=== PATIENT | male | born 1970 | race Caucasian/White ===

== ENCOUNTER 2022-02-11 10:19 | Inpatient (IN) | payer MEDICAID ==
[~2022-02-11] VITALS: Ht 188 cm; Wt 108.0 kg
[~2022-02-11 10:19] MED LIST: ALLO-97 PO; ATOR40TA28 PO; CHOL500013 PO; DIVA-80 PO; DOXY-354 PO; INSLAN SQ; INSU100V SQ; LACT1CAP70 PO; LOSA-381 PO; MULT-1119 PO; NEOM7.5C2 TP; PANT-31 PO; PRED-554 PO; SERT-162 PO; SODI5POW3 PO; SODI650T33 PO
[2022-02-11 16:24] VITALS: BP 144/75
[2022-02-11] MEDS ORDERED: DOCUSATE SODIUM 100 MG CAPSULE PO PRN (20:30)
[2022-02-11] MEDS ORDERED: CloNIDine HCL 0.1 MG TABLET PO PRN (20:30)
[2022-02-11] MEDS ORDERED: PETROLATUM,WHITE 28 GM JELLY TP PRN (20:30)
[2022-02-11] MEDS ORDERED: DEXTROSE 50%-WATER 25 GM/50 ML SYRINGE IVP PRN (20:30)
[2022-02-11] MEDS ORDERED: INSULIN LISPRO 100 UNITS/ML SQ PRN (20:30)
[2022-02-11] MEDS ORDERED: BACITRACIN 28 GM OINTMENT TP PRN (20:30)
[2022-02-11] MEDS ORDERED: ONDANSETRON HCL 4 MG TABLET PO PRN (20:30)
[2022-02-11] MEDS ORDERED: LOPERAMIDE HCL 2 MG CAPSULE PO PRN (20:30)
[2022-02-11] MEDS ORDERED: BENZOCAINE/MENTHOL LOZENGE PO PRN (20:30)
[2022-02-11] MEDS ORDERED: MAGNESIUM HYDROXIDE SUSPENSION 30 ML UDCUP PO PRN (20:30)
[2022-02-11] MEDS ORDERED: OMEPRAZOLE 20 MG CAPSULE PO PRN (20:30)
[2022-02-11] MEDS ORDERED: ALBUTEROL SULFATE HFA 90 MCG/PUFF 8 GM INHALER IH PRN (20:30)
[2022-02-11] MEDS ORDERED: MAG HYDROX/AL HYDROX/SIMETH ES 30 ML SUSPENSION UDCUP PO PRN (20:30)
[2022-02-11 21:41] LABS: GLUCOMETER DEV NAME(LOC) BV3N.; GLUCOSE,POINT OF CARE 105 MG/DL (70-110)
[2022-02-12] MEDS ORDERED: GLUCAGON,HUMAN RECOMBINANT 1 MG VIAL IM PRN (01:30)
[2022-02-12] MEDS ORDERED: INSULIN LISPRO 100 UNITS/ML SQ PRN (01:30)
[2022-02-12] MEDS: HALOPERIDOL 5 MG TABLET PO PRN (03:54)
[2022-02-12] MEDS: LORazepam 2 MG TABLET PO PRN ×2 (03:54→08:37)
[2022-02-12 03:55] VITALS: BP 144/78
[2022-02-12 06:07] LABS: GLUCOMETER DEV NAME(LOC) BV3N.; GLUCOSE,POINT OF CARE 115 MG/DL (70-110)
[2022-02-12] MEDS ORDERED: INSULIN LISPRO 100 UNITS/ML SQ SCH (06:30)
[2022-02-12 07:24] LABS: BASOPHILS % (AUTO) 0.4 % (0.0-2.0); EOSINOPHILS % (AUTO) 4.3 % (1.0-6.0); HEMATOCRIT 37.3 % (41-53); HEMOGLOBIN 12.5 g/dL (13.5-17.5); LYMPHOCYTES # (AUTO) 1.5 K/uL (1.0-4.8); LYMPHOCYTES % (AUTO) 23.3 % (22.0-44.0); MEAN CORPUSCULAR HEMOGLOBIN 28.1 pg (26.0-34.0); MEAN CORPUSCULAR HGB CONC 33.6 G/dL (31.0-37.0); MEAN CORPUSCULAR VOLUME 84 fL (80-100); MONOCYTES # (AUTO) 0.8 K/uL (0.1-1.0); MONOCYTES % (AUTO) 11.4 % (2.0-9.0); NEUTROPHILS % (AUTO) 60.6 % (40.0-70.0); PLATELET COUNT (AUTO) 100 K/uL (150-450); RED BLOOD CELL COUNT(AUTO) 4.46 MIL/uL (4.50-5.90); RED CELL DISTRIBUTION WIDTH 15.4 % (11.5-14.5)
[2022-02-12 07:38] LABS: HEMOGLOBIN A1C 5.7 % (3.8-5.6)
[2022-02-12 07:57] LABS: ALANINE AMINOTRANSFERASE 22 U/L (12-78); ALBUMIN 3.6 g/dL (3.4-5.0); ALKALINE PHOSPHATASE 93 U/L (46-116); ANION GAP 13 mmol/L (8-16); ASPARTATE AMINOTRANSFERASE 18 U/L (15-37); BILIRUBIN,TOTAL 0.5 mg/dL (0.1-1.0); CALCIUM, TOTAL 8.6 mg/dL (8.8-10.5); CARBON DIOXIDE 21 mmol/L (22-29); CHLORIDE 105 mmol/L (98-107); CHOL/HDL RATIO 5.3 (4.2-7.3); CHOLESTEROL 212 mg/dL (131-200); CREATININE 1.95 mg/dL (0.60-1.30); FREE T4 (FREE THYROXINE) 0.93 ng/dL (0.76-1.46); GLUCOSE,RANDOM 110 mg/dL (70-110); HDL CHOLESTEROL 40 mg/dL (40-60); LDL CHOL (CALC.) 94 mg/dL (0-130); POTASSIUM 3.8 mmol/L (3.5-5.1); SODIUM SERUM 139 mmol/L (136-145); THYROID STIMULATING HORMONE 3.49 uIU/mL (0.36-3.74); TOTAL PROTEIN, SERUM 7.2 g/dL (6.4-8.2); TRIGLYCERIDES 389 mg/dL (15-150); UREA NITROGEN, BLOOD 29 mg/dL (7-18)
[2022-02-12 07:58] LABS: GLOMERULAR FILTR. RATE CALC 36 mL/min (>60)
[2022-02-12 08:21] VITALS: BP 149/98
[2022-02-12] MEDS: LOSARTAN POTASSIUM 25 MG TABLET PO SCH (08:31)
[2022-02-12] MEDS: CHOLECALCIFEROL (VIT D3) 5,000 [125 MCG] UNITS CAPSULE PO SCH (08:31)
[2022-02-12] MEDS: ALLOPURINOL 100 MG TABLET PO SCH (08:31)
[2022-02-12] MEDS: ATORVASTATIN CALCIUM 40 MG TABLET PO SCH (08:31)
[2022-02-12] MEDS ORDERED: SERTRALINE HCL 100 MG TABLET PO SCH (09:00)
[2022-02-12] MEDS ORDERED: INSULIN GLARGINE,HUM.REC.ANLOG 100 UNITS/ML SQ SCH (09:00)
[2022-02-12] MEDS: MULTIVITAMINS WITH MINERALS, THERAPEUTIC TABLET PO SCH (09:06)
[2022-02-12 09:20] LABS: GLUCOMETER DEV NAME(LOC) BV3N.; GLUCOSE,POINT OF CARE 116 MG/DL (70-110)
[2022-02-12 11:56] LABS: GLUCOMETER DEV NAME(LOC) BV3N.; GLUCOSE,POINT OF CARE 105 MG/DL (70-110)
[2022-02-12 16:12] VITALS: BP 131/74
[2022-02-12 16:36] LABS: GLUCOMETER DEV NAME(LOC) BV3N.; GLUCOSE,POINT OF CARE 109 MG/DL (70-110)
[2022-02-12 20:36] LABS: GLUCOMETER DEV NAME(LOC) BV3N.; GLUCOSE,POINT OF CARE 98 MG/DL (70-110)
[2022-02-12] MEDS: DIVALPROEX SODIUM 500 MG DR TABLET PO SCH (20:45)
[2022-02-12] MEDS: LURASIDONE HCL 60 MG TABLET PO SCH (20:45)
[2022-02-13 00:24] VITALS: BP 133/70
[2022-02-13 06:31] LABS: GLUCOMETER DEV NAME(LOC) BV3N.; GLUCOSE,POINT OF CARE 93 MG/DL (70-110)
[2022-02-13 08:21] VITALS: BP 126/72
[2022-02-13] MEDS: ALLOPURINOL 100 MG TABLET PO SCH (08:43)
[2022-02-13] MEDS: ATORVASTATIN CALCIUM 40 MG TABLET PO SCH (08:43)
[2022-02-13] MEDS: LOSARTAN POTASSIUM 25 MG TABLET PO SCH (08:43)
[2022-02-13] MEDS: MULTIVITAMINS WITH MINERALS, THERAPEUTIC TABLET PO SCH (08:43)
[2022-02-13] MEDS: CHOLECALCIFEROL (VIT D3) 5,000 [125 MCG] UNITS CAPSULE PO SCH (08:43)
[2022-02-13] MEDS: LORazepam 2 MG TABLET PO PRN ×2 (08:44→16:59)
[2022-02-13 11:56] LABS: GLUCOMETER DEV NAME(LOC) BV3N.; GLUCOSE,POINT OF CARE 95 MG/DL (70-110)
[2022-02-13 16:18] VITALS: BP 134/90
[2022-02-13 17:11] LABS: GLUCOMETER DEV NAME(LOC) BV3N.; GLUCOSE,POINT OF CARE 115 MG/DL (70-110)
[2022-02-13] MEDS: DIVALPROEX SODIUM 500 MG DR TABLET PO SCH (20:34)
[2022-02-13] MEDS: LURASIDONE HCL 60 MG TABLET PO SCH (20:34)
[2022-02-13 21:21] LABS: GLUCOMETER DEV NAME(LOC) BV3N.; GLUCOSE,POINT OF CARE 140 MG/DL (70-110)
[2022-02-14 00:51] VITALS: BP 122/57
[2022-02-14 06:17] LABS: GLUCOMETER DEV NAME(LOC) BV3N.; GLUCOSE,POINT OF CARE 107 MG/DL (70-110)
[2022-02-14] MEDS: LOSARTAN POTASSIUM 25 MG TABLET PO SCH (08:20)
[2022-02-14] MEDS: LORazepam 2 MG TABLET PO PRN ×2 (08:21→20:25)
[2022-02-14] MEDS: ALLOPURINOL 100 MG TABLET PO SCH (08:21)
[2022-02-14] MEDS: MULTIVITAMINS WITH MINERALS, THERAPEUTIC TABLET PO SCH (08:21)
[2022-02-14] MEDS: CHOLECALCIFEROL (VIT D3) 5,000 [125 MCG] UNITS CAPSULE PO SCH (08:21)
[2022-02-14] MEDS: ATORVASTATIN CALCIUM 40 MG TABLET PO SCH (08:21)
[2022-02-14 12:01] LABS: GLUCOMETER DEV NAME(LOC) BV3N.; GLUCOSE,POINT OF CARE 107 MG/DL (70-110)
[2022-02-14 12:54] VITALS: BP 147/74
[2022-02-14 16:22] VITALS: BP 108/62
[2022-02-14 17:18] LABS: GLUCOMETER DEV NAME(LOC) BV3N.; GLUCOSE,POINT OF CARE 110 MG/DL (70-110)
[2022-02-14] MEDS: DIVALPROEX SODIUM 500 MG DR TABLET PO SCH (20:25)
[2022-02-14] MEDS: LURASIDONE HCL 60 MG TABLET PO SCH (20:25)
[2022-02-15] MEDS: MetFORMIN HCL 500 MG TABLET PO SCH ×2 (06:19→17:04)
[2022-02-15 06:32] VITALS: BP 136/84
[2022-02-15] MEDS: LORazepam 2 MG TABLET PO PRN ×2 (08:33→17:05)
[2022-02-15] MEDS: CHOLECALCIFEROL (VIT D3) 5,000 [125 MCG] UNITS CAPSULE PO SCH (08:33)
[2022-02-15] MEDS: MULTIVITAMINS WITH MINERALS, THERAPEUTIC TABLET PO SCH (08:33)
[2022-02-15] MEDS: ALLOPURINOL 100 MG TABLET PO SCH (08:33)
[2022-02-15] MEDS: LOSARTAN POTASSIUM 25 MG TABLET PO SCH (08:33)
[2022-02-15] MEDS: ATORVASTATIN CALCIUM 40 MG TABLET PO SCH (08:33)
[2022-02-15 16:21] VITALS: BP 125/69
[2022-02-15] MEDS: HALOPERIDOL 5 MG TABLET PO PRN (17:05)
[2022-02-15] MEDS: ZOLPIDEM TARTRATE 10 MG TABLET PO PRN (20:38)
[2022-02-15] MEDS: LURASIDONE HCL 60 MG TABLET PO SCH (20:38)
[2022-02-15] MEDS: DIVALPROEX SODIUM 500 MG DR TABLET PO SCH (20:38)
[2022-02-16 05:35] VITALS: BP 120/71
[2022-02-16] MEDS: MetFORMIN HCL 500 MG TABLET PO SCH ×2 (06:29→16:39)
[2022-02-16 08:16] VITALS: BP 103/63
[2022-02-16] MEDS: LOSARTAN POTASSIUM 25 MG TABLET PO SCH (08:41)
[2022-02-16] MEDS: LORazepam 2 MG TABLET PO PRN ×2 (08:41→16:39)
[2022-02-16] MEDS: ALLOPURINOL 100 MG TABLET PO SCH (08:41)
[2022-02-16] MEDS: CHOLECALCIFEROL (VIT D3) 5,000 [125 MCG] UNITS CAPSULE PO SCH (08:41)
[2022-02-16] MEDS: MULTIVITAMINS WITH MINERALS, THERAPEUTIC TABLET PO SCH (08:41)
[2022-02-16] MEDS: ATORVASTATIN CALCIUM 40 MG TABLET PO SCH (08:41)
[2022-02-16 16:12] VITALS: BP 115/73
[2022-02-16] MEDS: HALOPERIDOL 5 MG TABLET PO PRN (16:39)
[2022-02-16] MEDS: LURASIDONE HCL 60 MG TABLET PO SCH (20:36)
[2022-02-16] MEDS: ZOLPIDEM TARTRATE 10 MG TABLET PO PRN (20:36)
[2022-02-16] MEDS: DIVALPROEX SODIUM 500 MG DR TABLET PO SCH (20:36)
[2022-02-17 00:49] VITALS: BP 119/72
[2022-02-17] MEDS: HALOPERIDOL 5 MG TABLET PO PRN ×2 (00:51→17:13)
[2022-02-17] MEDS: LORazepam 2 MG TABLET PO PRN ×2 (00:51→17:13)
[2022-02-17] MEDS: MetFORMIN HCL 500 MG TABLET PO SCH ×2 (06:49→16:19)
[2022-02-17] MEDS: LOSARTAN POTASSIUM 25 MG TABLET PO SCH (08:33)
[2022-02-17] MEDS: MULTIVITAMINS WITH MINERALS, THERAPEUTIC TABLET PO SCH (08:33)
[2022-02-17] MEDS: ATORVASTATIN CALCIUM 40 MG TABLET PO SCH (08:33)
[2022-02-17] MEDS: ALLOPURINOL 100 MG TABLET PO SCH (08:33)
[2022-02-17] MEDS: CHOLECALCIFEROL (VIT D3) 5,000 [125 MCG] UNITS CAPSULE PO SCH (08:33)
[2022-02-17 09:43] VITALS: BP 118/71
[2022-02-17 17:15] VITALS: BP 112/76
[2022-02-17 19:50] VITALS: BP 116/75
[2022-02-17] MEDS: ACETAMINOPHEN 325 MG TABLET PO PRN (19:56)
[2022-02-17] MEDS: LURASIDONE HCL 60 MG TABLET PO SCH (20:00)
[2022-02-17] MEDS: DIVALPROEX SODIUM 500 MG DR TABLET PO SCH (20:00)
[2022-02-18 04:31] VITALS: BP 126/88
[2022-02-18] MEDS: MetFORMIN HCL 500 MG TABLET PO SCH ×2 (06:20→16:27)
[2022-02-18] MEDS: LOSARTAN POTASSIUM 25 MG TABLET PO SCH (08:19)
[2022-02-18] MEDS: ALLOPURINOL 100 MG TABLET PO SCH (08:19)
[2022-02-18] MEDS: ATORVASTATIN CALCIUM 40 MG TABLET PO SCH (08:20)
[2022-02-18] MEDS: HALOPERIDOL 5 MG TABLET PO PRN ×2 (08:20→16:28)
[2022-02-18] MEDS: LORazepam 2 MG TABLET PO PRN ×2 (08:20→16:28)
[2022-02-18] MEDS: CHOLECALCIFEROL (VIT D3) 5,000 [125 MCG] UNITS CAPSULE PO SCH (08:20)
[2022-02-18] MEDS: MULTIVITAMINS WITH MINERALS, THERAPEUTIC TABLET PO SCH (08:20)
[2022-02-18 08:27] VITALS: BP 113/51
[2022-02-18 16:14] VITALS: BP 122/75
[2022-02-18] MEDS: LURASIDONE HCL 60 MG TABLET PO SCH (20:22)
[2022-02-18] MEDS: DIVALPROEX SODIUM 500 MG DR TABLET PO SCH (20:22)
[2022-02-18] MEDS: ZOLPIDEM TARTRATE 10 MG TABLET PO PRN (20:23)
[2022-02-19] MEDS: HALOPERIDOL 5 MG TABLET PO PRN ×2 (00:12→17:27)
[2022-02-19 00:45] VITALS: BP 135/96
[2022-02-19] MEDS: MetFORMIN HCL 500 MG TABLET PO SCH ×2 (06:10→16:08)
[2022-02-19] MEDS: CHOLECALCIFEROL (VIT D3) 5,000 [125 MCG] UNITS CAPSULE PO SCH (08:24)
[2022-02-19] MEDS: MULTIVITAMINS WITH MINERALS, THERAPEUTIC TABLET PO SCH (08:24)
[2022-02-19] MEDS: ATORVASTATIN CALCIUM 40 MG TABLET PO SCH (08:24)
[2022-02-19] MEDS: ALLOPURINOL 100 MG TABLET PO SCH (08:25)
[2022-02-19] MEDS: LOSARTAN POTASSIUM 25 MG TABLET PO SCH (08:25)
[2022-02-19 08:29] VITALS: BP 109/66
[2022-02-19 16:35] VITALS: BP 119/61
[2022-02-19] MEDS: LORazepam 2 MG TABLET PO PRN (17:27)
[2022-02-19] MEDS: NICOTINE 21 MG/24 HOUR PATCH TD SCH (18:12)
[2022-02-19] MEDS: LURASIDONE HCL 60 MG TABLET PO SCH (21:13)
[2022-02-19] MEDS: DIVALPROEX SODIUM 500 MG DR TABLET PO SCH (21:13)
[2022-02-20] MEDS: LORazepam 2 MG TABLET PO PRN ×2 (00:39→18:56)
[2022-02-20] MEDS: ZOLPIDEM TARTRATE 10 MG TABLET PO PRN ×2 (00:39→21:31)
[2022-02-20 01:30] VITALS: BP 158/97
[2022-02-20] MEDS: MetFORMIN HCL 500 MG TABLET PO SCH ×2 (06:11→16:47)
[2022-02-20] MEDS: CHOLECALCIFEROL (VIT D3) 5,000 [125 MCG] UNITS CAPSULE PO SCH (08:24)
[2022-02-20] MEDS: ALLOPURINOL 100 MG TABLET PO SCH (08:24)
[2022-02-20] MEDS: LOSARTAN POTASSIUM 25 MG TABLET PO SCH (08:24)
[2022-02-20] MEDS: ATORVASTATIN CALCIUM 40 MG TABLET PO SCH (08:24)
[2022-02-20] MEDS: MULTIVITAMINS WITH MINERALS, THERAPEUTIC TABLET PO SCH (08:25)
[2022-02-20] MEDS: NICOTINE 21 MG/24 HOUR PATCH TD SCH (08:25)
[2022-02-20 10:37] VITALS: BP 138/75
[2022-02-20 16:19] VITALS: BP 109/65
[2022-02-20] MEDS: DIVALPROEX SODIUM 500 MG DR TABLET PO SCH (20:24)
[2022-02-20] MEDS: LURASIDONE HCL 60 MG TABLET PO SCH (20:24)
[2022-02-21 01:03] VITALS: BP 142/89
[2022-02-21] MEDS: ACETAMINOPHEN 325 MG TABLET PO PRN (02:06)
[2022-02-21] MEDS: IBUPROFEN 600 MG TABLET PO PRN ×3 (03:39→20:39)
[2022-02-21] MEDS: MetFORMIN HCL 500 MG TABLET PO SCH ×2 (06:23→16:30)
[2022-02-21 08:33] VITALS: BP 104/57
[2022-02-21] MEDS: LOSARTAN POTASSIUM 25 MG TABLET PO SCH (09:00)
[2022-02-21] MEDS: NICOTINE 21 MG/24 HOUR PATCH TD SCH (09:08)
[2022-02-21] MEDS: ALLOPURINOL 100 MG TABLET PO SCH (09:08)
[2022-02-21] MEDS: CHOLECALCIFEROL (VIT D3) 5,000 [125 MCG] UNITS CAPSULE PO SCH (09:08)
[2022-02-21] MEDS: ATORVASTATIN CALCIUM 40 MG TABLET PO SCH (09:09)
[2022-02-21] MEDS: MULTIVITAMINS WITH MINERALS, THERAPEUTIC TABLET PO SCH (09:09)
[2022-02-21 11:57] LABS: GLUCOMETER DEV NAME(LOC) BV3N.; GLUCOSE,POINT OF CARE 102 MG/DL (70-110)
[2022-02-21 16:11] VITALS: BP 110/64
[2022-02-21] MEDS: LORazepam 2 MG TABLET PO PRN (20:49)
[2022-02-21] MEDS: LURASIDONE HCL 60 MG TABLET PO SCH (21:17)
[2022-02-21] MEDS: DIVALPROEX SODIUM 500 MG DR TABLET PO SCH (21:17)
[2022-02-22] MEDS: MetFORMIN HCL 500 MG TABLET PO SCH (07:00)
[2022-02-22] MEDS: NICOTINE 21 MG/24 HOUR PATCH TD SCH (08:33)
[2022-02-22] MEDS: ATORVASTATIN CALCIUM 40 MG TABLET PO SCH (08:33)
[2022-02-22] MEDS: MULTIVITAMINS WITH MINERALS, THERAPEUTIC TABLET PO SCH (08:33)
[2022-02-22] MEDS: LORazepam 2 MG TABLET PO PRN (08:34)
[2022-02-22] MEDS: LOSARTAN POTASSIUM 25 MG TABLET PO SCH (08:34)
[2022-02-22] MEDS: CHOLECALCIFEROL (VIT D3) 5,000 [125 MCG] UNITS CAPSULE PO SCH (08:34)
[2022-02-22] MEDS: ALLOPURINOL 100 MG TABLET PO SCH (08:34)
[2022-02-22] MEDS ORDERED: MULT-1239 PO (17:20)
[2022-02-22] MEDS ORDERED: METF-1211 PO (17:20)
== END 2022-02-22 10:00 | disposition short-term general hospital (02) | DRG 754 ==
LOC: B3A 13:00 → UNDOADMIN 13:30 → B3A 13:30
PROVIDERS: ADMIT Psychiatry & Neurology Psychiatry; ATTEND Psychiatry & Neurology Psychiatry
DX: F32.9 Major depressive disorder, single episode, unspecified (principal); F22 Delusional disorders; E11.9 Type 2 diabetes mellitus without complications; E78.5 Hyperlipidemia, unspecified; F98.4 Stereotyped movement disorders; G40.909 Epilepsy, unspecified, not intractable, without status epilepticus; I10 Essential (primary) hypertension; J44.9 Chronic obstructive pulmonary disease, unspecified; G47.00 Insomnia, unspecified; K59.00 Constipation, unspecified; F41.9 Anxiety disorder, unspecified; Z71.6 Tobacco abuse counseling; Z91.19 Patient's noncompliance with other medical treatment and regimen; Z72.0 Tobacco use
CPT/HCPCS: 80053; 80061; 80164; 82962; 83036; 84436; 84439; 84443; 85025; 86592; G0480; J1815; Q9967

== ENCOUNTER 2022-02-21 23:05 | Emergency (ER) | payer MEDICAID ==
[~2022-02-21] VITALS: Ht 188 cm; Wt 113.0 kg
[2022-02-21 23:36] VITALS: BP 140/80
[2022-02-22] MEDS ORDERED: KETOROLAC TROMETHAMINE 60 MG/2 ML VIAL IM ONE (00:45)
[2022-02-22 00:52] LABS: MEAN CORPUSCULAR HEMOGLOBIN 28.8 pg (26.0-34.0); PLATELET COUNT (AUTO) 103 K/uL (150-450)
[2022-02-22 01:00] LABS: BASOPHILS % (AUTO) 0.5 % (0.0-2.0); CALCIUM, TOTAL 8.7 mg/dL (8.8-10.5); CREATININE 2.62 mg/dL (0.60-1.30); HEMATOCRIT 34.8 % (41-53); HEMOGLOBIN 11.8 g/dL (13.5-17.5); LYMPHOCYTES # (AUTO) 2.4 K/uL (1.0-4.8); LYMPHOCYTES % (AUTO) 31.1 % (22.0-44.0); MEAN CORPUSCULAR HGB CONC 33.8 G/dL (31.0-37.0); MEAN CORPUSCULAR VOLUME 85 fL (80-100); MONOCYTES # (AUTO) 0.7 K/uL (0.1-1.0); MONOCYTES % (AUTO) 9.5 % (2.0-9.0); NEUTROPHILS % (AUTO) 52.9 % (40.0-70.0); POTASSIUM 4.6 mmol/L (3.5-5.1); RED BLOOD CELL COUNT(AUTO) 4.09 MIL/uL (4.50-5.90); RED CELL DISTRIBUTION WIDTH 15.7 % (11.5-14.5)
[2022-02-22 01:04] LABS: ALBUMIN 3.8 g/dL (3.4-5.0); BILIRUBIN,TOTAL 0.1 mg/dL (0.1-1.0); TOTAL PROTEIN, SERUM 7.4 g/dL (6.4-8.2)
[2022-02-22] MEDS ORDERED: LORazepam 2 MG TABLET PO ONE (03:45)
[2022-02-22] MEDS ORDERED: MULT-1239 PO (17:20)
[2022-02-22] MEDS ORDERED: METF-1211 PO (17:20)
== END 2022-02-22 09:43 | disposition home or self-care (01) ==
LOC: EMS 23:05
DX: M54.2 Cervicalgia (principal); N28.9 Disorder of kidney and ureter, unspecified; M19.09 Primary osteoarthritis, other specified site; L73.2 Hidradenitis suppurativa; F31.9 Bipolar disorder, unspecified; J44.9 Chronic obstructive pulmonary disease, unspecified; E11.9 Type 2 diabetes mellitus without complications; Z98.890 Other specified postprocedural states
CPT/HCPCS: 36415; 70450; 70490; 80053; 83605; 85025; 96372; 99284; J1885

== ENCOUNTER 2022-02-22 12:11 | Inpatient (IN) | payer MEDICAID ==
[~2022-02-22] VITALS: Ht 188 cm; Wt 108.5 kg
[2022-02-22 15:23] VITALS: BP 114/70
[2022-02-22] MEDS ORDERED: SODIUM CHLORIDE 0.9% 1,000 ML ONE (15:46)
[2022-02-22] MEDS ORDERED: SODIUM CHLORIDE 0.9% 1,000 ML IV ONE (16:30)
[2022-02-22] MEDS ORDERED: IPRATROPIUM BROMIDE 0.5 MG/2.5 ML NEB SOLUTION NEB PRN (17:15)
[2022-02-22] MEDS ORDERED: MAGNESIUM HYDROXIDE SUSPENSION 30 ML UDCUP PO PRN (17:15)
[2022-02-22] MEDS ORDERED: ONDANSETRON HCL 4 MG/2 ML VIAL IVP PRN (17:15)
[2022-02-22] MEDS ORDERED: ALBUTEROL SULFATE 2.5 MG/0.5 ML NEB SOLUTION NEB PRN (17:15)
[2022-02-22] MEDS ORDERED: METF-1211 PO (17:20)
[2022-02-22] MEDS ORDERED: MULT-1239 PO (17:20)
[2022-02-22 19:26] VITALS: BP 140/83
[2022-02-22] MEDS: DIVALPROEX SODIUM 500 MG ER TABLET PO SCH (19:59)
[2022-02-22] MEDS: ACETAMINOPHEN 325 MG TABLET PO PRN (20:00)
[2022-02-22] MEDS: ZOLPIDEM TARTRATE 5 MG TABLET PO PRN (21:15)
[2022-02-23] MEDS: TraMADol HCL 50 MG TABLET PO PRN ×2 (01:24→09:31)
[2022-02-23 04:15] VITALS: BP 128/71
[2022-02-23 06:32] LABS: GLUCOMETER DEV NAME(LOC) 6N.1; GLUCOSE,POINT OF CARE 108 MG/DL (70-110)
[2022-02-23 07:09] LABS: BASOPHILS % (AUTO) 0.8 % (0.0-2.0); EOSINOPHILS % (AUTO) 6.2 % (1.0-6.0); HEMATOCRIT 35.2 % (41-53); HEMOGLOBIN 11.9 g/dL (13.5-17.5); LYMPHOCYTES # (AUTO) 2.4 K/uL (1.0-4.8); LYMPHOCYTES % (AUTO) 33.5 % (22.0-44.0); MEAN CORPUSCULAR HEMOGLOBIN 28.8 pg (26.0-34.0); MEAN CORPUSCULAR HGB CONC 33.8 G/dL (31.0-37.0); MEAN CORPUSCULAR VOLUME 85 fL (80-100); MONOCYTES # (AUTO) 0.8 K/uL (0.1-1.0); MONOCYTES % (AUTO) 10.9 % (2.0-9.0); NEUTROPHILS # (AUTO) 3.5 K/uL (1.8-7.7); NEUTROPHILS % (AUTO) 48.6 % (40.0-70.0); PLATELET COUNT (AUTO) 105 K/uL (150-450); RED BLOOD CELL COUNT(AUTO) 4.13 MIL/uL (4.50-5.90); RED CELL DISTRIBUTION WIDTH 15.8 % (11.5-14.5)
[2022-02-23 07:17] LABS: HEMOGLOBIN A1C 5.6 % (3.8-5.6)
[2022-02-23 07:29] LABS: ALBUMIN 3.3 g/dL (3.4-5.0); BILIRUBIN,TOTAL 0.2 mg/dL (0.1-1.0); CALCIUM, TOTAL 8.4 mg/dL (8.8-10.5); CREATININE 2.38 mg/dL (0.60-1.30); MAGNESIUM 1.8 mg/dL (1.80-2.40); POTASSIUM 5.7 mmol/L (3.5-5.1); TOTAL PROTEIN, SERUM 6.7 g/dL (6.4-8.2)
[2022-02-23] MEDS: ATORVASTATIN CALCIUM 40 MG TABLET PO SCH ×2 (09:00→09:25)
[2022-02-23] MEDS: ALLOPURINOL 100 MG TABLET PO SCH ×2 (09:00→09:25)
[2022-02-23 09:19] VITALS: BP 127/89
[2022-02-23] MEDS: PANTOPRAZOLE SODIUM 40 MG DR TABLET PO SCH (09:25)
[2022-02-23] MEDS: SERTRALINE HCL 100 MG TABLET PO SCH (09:25)
[2022-02-23] MEDS: CHOLECALCIFEROL (VIT D3) 5,000 [125 MCG] UNITS CAPSULE PO SCH (09:25)
[2022-02-23] MEDS ORDERED: SODIUM POLYSTYRENE SULFONATE 15 GM/60 ML SUSPENSION BOTTLE PO ONE (14:30)
[2022-02-23 16:00] VITALS: BP 119/61
[2022-02-23] MEDS ORDERED: SODIUM ZIRCONIUM CYCLOSILICATE 5 GM POWDER PACKET PO ONE (17:15)
[2022-02-23] MEDS: SODIUM CHLORIDE 0.45% 1,000 ML IV SCH (17:40)
[2022-02-23 20:00] VITALS: BP 106/57
[2022-02-23 20:22] LABS: GLUCOMETER DEV NAME(LOC) 6N.1; GLUCOSE,POINT OF CARE 113 MG/DL (70-110)
[2022-02-23] MEDS: DIVALPROEX SODIUM 500 MG ER TABLET PO SCH (20:36)
[2022-02-23 22:07] LABS: APPEARANCE,URINE CLEAR (CLEAR); BILIRUBIN,URINE NEGATIVE (NEGATIVE); GLUCOSE, URINE (UA) NEGATIVE (NEGATIVE); KETONES,URINE NEGATIVE (NEGATIVE); LEUKOCYTE ESTERASE ,URINE NEGATIVE (NEGATIVE); NITRATE,URINE NEGATIVE (NEGATIVE); OCCULT BLOOD,URINE TRACE (NEGATIVE); PROTEIN,URINE NEGATIVE (NEGATIVE); SPECIFIC GRAVITIY, URINE 1.013 (1.003-1.030); UROBILINOGEN,URINE <=1.0 mg/dL (<=1.0)
[2022-02-23 22:12] LABS: CREATININE,URINE RANDOM 65.4 mg/dL (30.0-125.0); SODIUM,URINE RANDOM 111 mmol/l (20-110); UREA NITROGEN,URINE RANDOM 602 mg/dL (350-1000)
[2022-02-23 22:26] LABS: BACTERIA,URINE None Seen /HPF (None Seen); RBC,URINE None Seen /HPF (0-2); WBC,URINE 0-2 /HPF (0-5)
[2022-02-24 04:00] VITALS: BP 111/76
[2022-02-24] MEDS: SODIUM CHLORIDE 0.45% 1,000 ML IV SCH ×2 (05:25→17:30)
[2022-02-24 05:41] LABS: GLUCOMETER DEV NAME(LOC) 6N.1; GLUCOSE,POINT OF CARE 112 MG/DL (70-110)
[2022-02-24 06:41] LABS: BASOPHILS % (AUTO) 0.6 % (0.0-2.0); EOSINOPHILS % (AUTO) 6.2 % (1.0-6.0); HEMATOCRIT 32.6 % (41-53); HEMOGLOBIN 11.1 g/dL (13.5-17.5); LYMPHOCYTES % (AUTO) 27.7 % (22.0-44.0); MEAN CORPUSCULAR HGB CONC 34.2 G/dL (31.0-37.0); MEAN CORPUSCULAR VOLUME 85 fL (80-100); MONOCYTES # (AUTO) 0.8 K/uL (0.1-1.0); MONOCYTES % (AUTO) 11.5 % (2.0-9.0); NEUTROPHILS # (AUTO) 3.9 K/uL (1.8-7.7); PLATELET COUNT (AUTO) 88 K/uL (150-450); RED BLOOD CELL COUNT(AUTO) 3.84 MIL/uL (4.50-5.90)
[2022-02-24 06:51] LABS: HEMOGLOBIN A1C 5.6 % (3.8-5.6)
[2022-02-24 06:57] LABS: ALBUMIN 3.2 g/dL (3.4-5.0); BILIRUBIN,TOTAL 0.1 mg/dL (0.1-1.0); CALCIUM, TOTAL 8.1 mg/dL (8.8-10.5); CHOL/HDL RATIO 4.7 (4.2-7.3); CREATININE 2.27 mg/dL (0.60-1.30); MAGNESIUM 1.5 mg/dL (1.80-2.40); PHOSPHORUS 4.7 mg/dL (2.5-4.9); POTASSIUM 5.2 mmol/L (3.5-5.1); TOTAL PROTEIN, SERUM 6.6 g/dL (6.4-8.2)
[2022-02-24] MEDS ORDERED: SODIUM ZIRCONIUM CYCLOSILICATE 5 GM POWDER PACKET PO ONE (07:30)
[2022-02-24 07:45] VITALS: BP 114/74
[2022-02-24] MEDS: PANTOPRAZOLE SODIUM 40 MG DR TABLET PO SCH (08:45)
[2022-02-24] MEDS: ATORVASTATIN CALCIUM 40 MG TABLET PO SCH (08:45)
[2022-02-24] MEDS: CHOLECALCIFEROL (VIT D3) 5,000 [125 MCG] UNITS CAPSULE PO SCH (08:46)
[2022-02-24] MEDS: SERTRALINE HCL 100 MG TABLET PO SCH (08:46)
[2022-02-24] MEDS: ALLOPURINOL 100 MG TABLET PO SCH (08:46)
[2022-02-24 11:51] LABS: GLUCOMETER DEV NAME(LOC) 6N.2; GLUCOSE,POINT OF CARE 157 MG/DL (70-110)
[2022-02-24 15:27] VITALS: BP 137/59
[2022-02-24 18:16] LABS: GLUCOMETER DEV NAME(LOC) 6N.1; GLUCOSE,POINT OF CARE 105 MG/DL (70-110)
[2022-02-24 19:59] VITALS: BP 112/58
[2022-02-24] MEDS: ZOLPIDEM TARTRATE 5 MG TABLET PO PRN (20:57)
[2022-02-24] MEDS: DIVALPROEX SODIUM 500 MG ER TABLET PO SCH (20:57)
[2022-02-24] MEDS: ACETAMINOPHEN 325 MG TABLET PO PRN (21:00)
[2022-02-25] MEDS: SODIUM CHLORIDE 0.45% 1,000 ML IV SCH ×2 (03:06→08:58)
[2022-02-25 04:00] VITALS: BP 143/72
[2022-02-25 06:32] LABS: GLUCOMETER DEV NAME(LOC) 6N.2; GLUCOSE,POINT OF CARE 99 MG/DL (70-110)
[2022-02-25 07:38] LABS: CALCIUM, TOTAL 8.2 mg/dL (8.8-10.5); CREATININE 2.25 mg/dL (0.60-1.30); MAGNESIUM 1.4 mg/dL (1.80-2.40); PHOSPHORUS 4.3 mg/dL (2.5-4.9); POTASSIUM 5.1 mmol/L (3.5-5.1)
[2022-02-25 08:01] VITALS: BP 127/80
[2022-02-25] MEDS: PANTOPRAZOLE SODIUM 40 MG DR TABLET PO SCH (08:56)
[2022-02-25] MEDS: ATORVASTATIN CALCIUM 40 MG TABLET PO SCH (08:56)
[2022-02-25] MEDS: SERTRALINE HCL 100 MG TABLET PO SCH (08:56)
[2022-02-25] MEDS: CHOLECALCIFEROL (VIT D3) 5,000 [125 MCG] UNITS CAPSULE PO SCH (08:56)
[2022-02-25 11:10] LABS: HEMATOCRIT 35.1 % (41-53); HEMOGLOBIN 11.8 g/dL (13.5-17.5)
[2022-02-25] MEDS: TraMADol HCL 50 MG TABLET PO PRN ×2 (13:22→20:22)
[2022-02-25 13:56] LABS: GLUCOMETER DEV NAME(LOC) 6N.1; GLUCOSE,POINT OF CARE 124 MG/DL (70-110)
[2022-02-25 16:01] VITALS: BP 130/76
[2022-02-25] MEDS: ACETAMINOPHEN 325 MG TABLET PO PRN ×2 (16:52→21:22)
[2022-02-25 19:31] VITALS: BP 128/76
[2022-02-25 20:11] LABS: GLUCOMETER DEV NAME(LOC) 6N.1; GLUCOSE,POINT OF CARE 100 MG/DL (70-110)
[2022-02-25] MEDS: DIVALPROEX SODIUM 500 MG ER TABLET PO SCH (20:22)
[2022-02-25] MEDS ORDERED: PredniSONE 20 MG TABLET PO ONE (21:45)
[2022-02-25] MEDS ORDERED: IBUPROFEN 400 MG TABLET PO ONE (21:45)
[2022-02-26 03:16] LABS: GLUCOMETER DEV NAME(LOC) 6N.2; GLUCOSE,POINT OF CARE 109 MG/DL (70-110)
[2022-02-26] MEDS: SODIUM CHLORIDE 0.45% 1,000 ML IV SCH (03:59)
[2022-02-26 04:00] VITALS: BP 130/81
[2022-02-26] MEDS: ACETAMINOPHEN 325 MG TABLET PO PRN ×2 (04:01→11:28)
[2022-02-26 04:04] VITALS: BP 132/78
[2022-02-26 06:31] LABS: GLUCOMETER DEV NAME(LOC) 6N.2; GLUCOSE,POINT OF CARE 139 MG/DL (70-110)
[2022-02-26 07:28] VITALS: BP 139/83
[2022-02-26] MEDS: CHOLECALCIFEROL (VIT D3) 5,000 [125 MCG] UNITS CAPSULE PO SCH (07:54)
[2022-02-26] MEDS: SERTRALINE HCL 100 MG TABLET PO SCH (07:54)
[2022-02-26] MEDS: ATORVASTATIN CALCIUM 40 MG TABLET PO SCH (07:54)
[2022-02-26] MEDS: PANTOPRAZOLE SODIUM 40 MG DR TABLET PO SCH (07:54)
[2022-02-26 08:02] LABS: CALCIUM, TOTAL 8.4 mg/dL (8.8-10.5); CREATININE 2.19 mg/dL (0.60-1.30); POTASSIUM 5.3 mmol/L (3.5-5.1)
[2022-02-26 12:26] LABS: GLUCOMETER DEV NAME(LOC) 6N.2; GLUCOSE,POINT OF CARE 177 MG/DL (70-110)
[2022-02-26] MEDS ORDERED: SODIUM ZIRCONIUM CYCLOSILICATE 5 GM POWDER PACKET PO ONE (13:00)
[2022-02-26] MEDS ORDERED: PredniSONE 10 MG TABLET PO ONE (13:00)
[2022-02-26 15:28] VITALS: BP 141/66
[2022-02-26] MEDS ORDERED: DEXTROSE 50%-WATER 25 GM/50 ML SYRINGE IVP PRN (18:15)
[2022-02-26] MEDS: INSULIN LISPRO 100 UNITS/ML SQ PRN ×2 (18:24→20:47)
[2022-02-26 20:02] LABS: GLUCOMETER DEV NAME(LOC) 6N.2; GLUCOSE,POINT OF CARE 212 MG/DL (70-110)
[2022-02-26 20:40] VITALS: BP 127/74
[2022-02-26] MEDS: DIVALPROEX SODIUM 500 MG ER TABLET PO SCH (20:44)
[2022-02-27 03:11] LABS: GLUCOMETER DEV NAME(LOC) 6N.1; GLUCOSE,POINT OF CARE 177 MG/DL (70-110)
[2022-02-27 04:35] VITALS: BP 120/57
[2022-02-27] MEDS: ACETAMINOPHEN 325 MG TABLET PO PRN (04:36)
[2022-02-27] MEDS: INSULIN LISPRO 100 UNITS/ML SQ PRN ×4 (05:35→20:27)
[2022-02-27 06:11] LABS: GLUCOMETER DEV NAME(LOC) 6N.2; GLUCOSE,POINT OF CARE 261 MG/DL (70-110)
[2022-02-27 06:31] LABS: BASOPHILS % (AUTO) 0.1 % (0.0-2.0); EOSINOPHILS % (AUTO) 0.1 % (1.0-6.0); HEMATOCRIT 36.7 % (41-53); HEMOGLOBIN 12.4 g/dL (13.5-17.5); LYMPHOCYTES # (AUTO) 1.2 K/uL (1.0-4.8); MEAN CORPUSCULAR HEMOGLOBIN 28.7 pg (26.0-34.0); MEAN CORPUSCULAR HGB CONC 33.7 G/dL (31.0-37.0); MEAN CORPUSCULAR VOLUME 85 fL (80-100); MONOCYTES # (AUTO) 0.7 K/uL (0.1-1.0); MONOCYTES % (AUTO) 5.7 % (2.0-9.0); NEUTROPHILS # (AUTO) 10.4 K/uL (1.8-7.7); NEUTROPHILS % (AUTO) 84.1 % (40.0-70.0); PLATELET COUNT (AUTO) 117 K/uL (150-450); RED BLOOD CELL COUNT(AUTO) 4.31 MIL/uL (4.50-5.90); RED CELL DISTRIBUTION WIDTH 16.1 % (11.5-14.5)
[2022-02-27 06:50] LABS: CALCIUM, TOTAL 9.1 mg/dL (8.8-10.5); CREATININE 2.22 mg/dL (0.60-1.30); POTASSIUM 5.5 mmol/L (3.5-5.1); URIC ACID 8.8 mg/dL (2.6-7.2)
[2022-02-27] MEDS ORDERED: PredniSONE 20 MG TABLET PO ONE (07:00)
[2022-02-27 08:01] VITALS: BP 133/82
[2022-02-27] MEDS: ATORVASTATIN CALCIUM 40 MG TABLET PO SCH (08:03)
[2022-02-27] MEDS: MetFORMIN HCL 500 MG TABLET PO SCH ×2 (08:03→17:29)
[2022-02-27] MEDS: CHOLECALCIFEROL (VIT D3) 5,000 [125 MCG] UNITS CAPSULE PO SCH (08:04)
[2022-02-27] MEDS: PANTOPRAZOLE SODIUM 40 MG DR TABLET PO SCH (08:04)
[2022-02-27] MEDS: SERTRALINE HCL 100 MG TABLET PO SCH (08:04)
[2022-02-27 08:25] LABS: ERYTHROCYTE SEDIMENTATION RATE 26 MM/HR (0-15)
[2022-02-27] MEDS ORDERED: SODIUM ZIRCONIUM CYCLOSILICATE 5 GM POWDER PACKET PO ONE (12:00)
[2022-02-27 13:06] LABS: GLUCOMETER DEV NAME(LOC) 6N.2; GLUCOSE,POINT OF CARE 218 MG/DL (70-110)
[2022-02-27 16:07] VITALS: BP 146/87
[2022-02-27 18:51] LABS: GLUCOMETER DEV NAME(LOC) 6N.2; GLUCOSE,POINT OF CARE 246 MG/DL (70-110)
[2022-02-27] MEDS: DIVALPROEX SODIUM 500 MG ER TABLET PO SCH (20:23)
[2022-02-27 20:40] VITALS: BP 134/80
[2022-02-27 23:21] LABS: GLUCOMETER DEV NAME(LOC) 6N.2; GLUCOSE,POINT OF CARE 173 MG/DL (70-110)
[2022-02-28 05:40] VITALS: BP 137/90
[2022-02-28 05:49] LABS: BASOPHILS % (AUTO) 1.2 % (0.0-2.0); EOSINOPHILS % (AUTO) 1.3 % (1.0-6.0); HEMATOCRIT 36.3 % (41-53); HEMOGLOBIN 12.4 g/dL (13.5-17.5); LYMPHOCYTES # (AUTO) 2.4 K/uL (1.0-4.8); LYMPHOCYTES % (AUTO) 22.8 % (22.0-44.0); MEAN CORPUSCULAR HEMOGLOBIN 29.3 pg (26.0-34.0); MEAN CORPUSCULAR HGB CONC 34.1 G/dL (31.0-37.0); MEAN CORPUSCULAR VOLUME 86 fL (80-100); MONOCYTES # (AUTO) 0.7 K/uL (0.1-1.0); MONOCYTES % (AUTO) 6.2 % (2.0-9.0); NEUTROPHILS # (AUTO) 7.2 K/uL (1.8-7.7); NEUTROPHILS % (AUTO) 68.5 % (40.0-70.0); PLATELET COUNT (AUTO) 108 K/uL (150-450); RED BLOOD CELL COUNT(AUTO) 4.23 MIL/uL (4.50-5.90); RED CELL DISTRIBUTION WIDTH 16.3 % (11.5-14.5)
[2022-02-28 05:58] LABS: CALCIUM, TOTAL 8.5 mg/dL (8.8-10.5); CREATININE 2.3 mg/dL (0.60-1.30); URIC ACID 8.8 mg/dL (2.6-7.2)
[2022-02-28 06:21] LABS: GLUCOMETER DEV NAME(LOC) 6N.2; GLUCOSE,POINT OF CARE 164 MG/DL (70-110)
[2022-02-28] MEDS: PredniSONE 10 MG TABLET PO SCH (06:36)
[2022-02-28] MEDS: INSULIN LISPRO 100 UNITS/ML SQ PRN ×3 (06:37→17:26)
[2022-02-28] MEDS: SERTRALINE HCL 100 MG TABLET PO SCH (07:59)
[2022-02-28] MEDS: ATORVASTATIN CALCIUM 40 MG TABLET PO SCH (07:59)
[2022-02-28] MEDS: CHOLECALCIFEROL (VIT D3) 5,000 [125 MCG] UNITS CAPSULE PO SCH (07:59)
[2022-02-28] MEDS: PANTOPRAZOLE SODIUM 40 MG DR TABLET PO SCH (07:59)
[2022-02-28] MEDS: MetFORMIN HCL 500 MG TABLET PO SCH ×2 (07:59→17:20)
[2022-02-28] MEDS: ALLOPURINOL 100 MG TABLET PO SCH ×2 (08:01→12:16)
[2022-02-28 08:15] VITALS: BP 132/84
[2022-02-28 14:37] LABS: GLUCOMETER DEV NAME(LOC) 6N.1; GLUCOSE,POINT OF CARE 154 MG/DL (70-110)
[2022-02-28 20:00] VITALS: BP 135/70
[2022-02-28] MEDS: DIVALPROEX SODIUM 500 MG ER TABLET PO SCH (21:02)
[2022-02-28 22:16] LABS: GLUCOMETER DEV NAME(LOC) 6N.2; GLUCOSE,POINT OF CARE 128 MG/DL (70-110)
[2022-03-01] MEDS: ACETAMINOPHEN 325 MG TABLET PO PRN ×3 (03:41→20:10)
[2022-03-01 04:00] VITALS: BP 128/77
[2022-03-01 04:16] LABS: GLUCOMETER DEV NAME(LOC) 6N.1; GLUCOSE,POINT OF CARE 158 MG/DL (70-110)
[2022-03-01 05:45] LABS: CALCIUM, TOTAL 8.6 mg/dL (8.8-10.5); CREATININE 2.43 mg/dL (0.60-1.30); POTASSIUM 4.4 mmol/L (3.5-5.1)
[2022-03-01] MEDS: PredniSONE 10 MG TABLET PO SCH (06:02)
[2022-03-01] MEDS: INSULIN LISPRO 100 UNITS/ML SQ PRN ×3 (06:06→20:05)
[2022-03-01 06:47] LABS: GLUCOMETER DEV NAME(LOC) 6N.2; GLUCOSE,POINT OF CARE 156 MG/DL (70-110)
[2022-03-01 07:51] VITALS: BP 116/57
[2022-03-01] MEDS: PANTOPRAZOLE SODIUM 40 MG DR TABLET PO SCH (08:13)
[2022-03-01] MEDS: MetFORMIN HCL 500 MG TABLET PO SCH (08:14)
[2022-03-01] MEDS: ALLOPURINOL 100 MG TABLET PO SCH (08:14)
[2022-03-01] MEDS: SERTRALINE HCL 100 MG TABLET PO SCH (08:14)
[2022-03-01] MEDS: ATORVASTATIN CALCIUM 40 MG TABLET PO SCH (08:14)
[2022-03-01] MEDS: CHOLECALCIFEROL (VIT D3) 5,000 [125 MCG] UNITS CAPSULE PO SCH (08:14)
[2022-03-01 14:16] LABS: GLUCOMETER DEV NAME(LOC) 6N.1; GLUCOSE,POINT OF CARE 138 MG/DL (70-110)
[2022-03-01 15:29] VITALS: BP 119/63
[2022-03-01 20:00] VITALS: BP 138/87
[2022-03-01] MEDS: DIVALPROEX SODIUM 500 MG ER TABLET PO SCH (20:01)
[2022-03-01 20:11] LABS: GLUCOMETER DEV NAME(LOC) 6N.1; GLUCOSE,POINT OF CARE 200 MG/DL (70-110)
[2022-03-02 02:56] LABS: GLUCOMETER DEV NAME(LOC) 6N.2; GLUCOSE,POINT OF CARE 179 MG/DL (70-110)
[2022-03-02 04:20] VITALS: BP 118/59
[2022-03-02] MEDS: PredniSONE 10 MG TABLET PO SCH (06:15)
[2022-03-02] MEDS: ACETAMINOPHEN 325 MG TABLET PO PRN (06:19)
[2022-03-02 06:56] LABS: GLUCOMETER DEV NAME(LOC) 6N.1; GLUCOSE,POINT OF CARE 110 MG/DL (70-110)
[2022-03-02] MEDS: SERTRALINE HCL 100 MG TABLET PO SCH (08:01)
[2022-03-02] MEDS: ALLOPURINOL 100 MG TABLET PO SCH (08:02)
[2022-03-02] MEDS: CHOLECALCIFEROL (VIT D3) 5,000 [125 MCG] UNITS CAPSULE PO SCH (08:02)
[2022-03-02] MEDS: ATORVASTATIN CALCIUM 40 MG TABLET PO SCH (08:02)
[2022-03-02] MEDS: PANTOPRAZOLE SODIUM 40 MG DR TABLET PO SCH (08:02)
[2022-03-02 08:12] VITALS: BP 134/72
[2022-03-02] MEDS: INSULIN LISPRO 100 UNITS/ML SQ PRN (11:16)
[2022-03-02 11:46] LABS: GLUCOMETER DEV NAME(LOC) 6N.2; GLUCOSE,POINT OF CARE 180 MG/DL (70-110)
[2022-03-02 16:31] VITALS: BP 129/71
[2022-03-02 18:57] LABS: GLUCOMETER DEV NAME(LOC) 6N.2; GLUCOSE,POINT OF CARE 123 MG/DL (70-110)
[2022-03-02 19:15] VITALS: BP 113/69
[2022-03-02] MEDS: DIVALPROEX SODIUM 500 MG ER TABLET PO SCH (20:05)
[2022-03-03 03:31] LABS: GLUCOMETER DEV NAME(LOC) 6N.1; GLUCOSE,POINT OF CARE 125 MG/DL (70-110)
[2022-03-03 04:53] VITALS: BP 138/84
[2022-03-03] MEDS: ACETAMINOPHEN 325 MG TABLET PO PRN ×2 (04:57→12:28)
[2022-03-03] MEDS: PredniSONE 10 MG TABLET PO SCH (06:13)
[2022-03-03 06:26] LABS: BASOPHILS % (AUTO) 0.4 % (0.0-2.0); EOSINOPHILS % (AUTO) 2.3 % (1.0-6.0); HEMATOCRIT 36.7 % (41-53); HEMOGLOBIN 12.6 g/dL (13.5-17.5); LYMPHOCYTES # (AUTO) 2.4 K/uL (1.0-4.8); LYMPHOCYTES % (AUTO) 25.4 % (22.0-44.0); MEAN CORPUSCULAR HEMOGLOBIN 29.2 pg (26.0-34.0); MEAN CORPUSCULAR HGB CONC 34.3 G/dL (31.0-37.0); MEAN CORPUSCULAR VOLUME 85 fL (80-100); MONOCYTES # (AUTO) 0.7 K/uL (0.1-1.0); MONOCYTES % (AUTO) 7.6 % (2.0-9.0); NEUTROPHILS % (AUTO) 64.3 % (40.0-70.0); PLATELET COUNT (AUTO) 112 K/uL (150-450); RED BLOOD CELL COUNT(AUTO) 4.31 MIL/uL (4.50-5.90); RED CELL DISTRIBUTION WIDTH 16.1 % (11.5-14.5)
[2022-03-03 06:39] LABS: CALCIUM, TOTAL 8.5 mg/dL (8.8-10.5); CREATININE 2.37 mg/dL (0.60-1.30); POTASSIUM 4.2 mmol/L (3.5-5.1); URIC ACID 10.5 mg/dL (2.6-7.2)
[2022-03-03 06:41] LABS: GLUCOMETER DEV NAME(LOC) 6N.2; GLUCOSE,POINT OF CARE 119 MG/DL (70-110)
[2022-03-03] MEDS: ALLOPURINOL 100 MG TABLET PO SCH (08:30)
[2022-03-03] MEDS: ATORVASTATIN CALCIUM 40 MG TABLET PO SCH (08:30)
[2022-03-03] MEDS: FEBUXOSTAT 40 MG TABLET PO SCH (08:30)
[2022-03-03] MEDS: SERTRALINE HCL 100 MG TABLET PO SCH (08:30)
[2022-03-03] MEDS: CHOLECALCIFEROL (VIT D3) 5,000 [125 MCG] UNITS CAPSULE PO SCH (08:31)
[2022-03-03] MEDS: PANTOPRAZOLE SODIUM 40 MG DR TABLET PO SCH (08:31)
[2022-03-03 09:00] VITALS: BP 129/81
[2022-03-03] MEDS: INSULIN LISPRO 100 UNITS/ML SQ PRN ×2 (12:24→17:28)
[2022-03-03 15:20] VITALS: BP 115/69
[2022-03-03 20:04] VITALS: BP 139/88
[2022-03-03] MEDS: DIVALPROEX SODIUM 500 MG ER TABLET PO SCH (20:09)
[2022-03-03 20:11] LABS: GLUCOMETER DEV NAME(LOC) 6S.1B; GLUCOSE,POINT OF CARE 166 MG/DL (70-110)
[2022-03-03 23:16] LABS: GLUCOMETER DEV NAME(LOC) 6N.1; GLUCOSE,POINT OF CARE 101 MG/DL (70-110)
[2022-03-04 04:53] VITALS: BP 113/62
[2022-03-04 06:26] LABS: GLUCOMETER DEV NAME(LOC) 6N.2; GLUCOSE,POINT OF CARE 106 MG/DL (70-110)
[2022-03-04] MEDS: PredniSONE 10 MG TABLET PO SCH (06:40)
[2022-03-04] MEDS: ATORVASTATIN CALCIUM 40 MG TABLET PO SCH (08:20)
[2022-03-04] MEDS: SERTRALINE HCL 100 MG TABLET PO SCH (08:21)
[2022-03-04] MEDS: PANTOPRAZOLE SODIUM 40 MG DR TABLET PO SCH (08:23)
[2022-03-04] MEDS ORDERED: SODIUM CHLORIDE 0.9% 500 ML IV ONE (08:24)
[2022-03-04] MEDS: FEBUXOSTAT 40 MG TABLET PO SCH (09:51)
[2022-03-04] MEDS: CHOLECALCIFEROL (VIT D3) 5,000 [125 MCG] UNITS CAPSULE PO SCH (09:51)
[2022-03-04] MEDS: ALLOPURINOL 100 MG TABLET PO SCH (09:51)
[2022-03-04] MEDS: INSULIN LISPRO 100 UNITS/ML SQ PRN ×2 (12:13→17:51)
[2022-03-04] MEDS: ACETAMINOPHEN 325 MG TABLET PO PRN ×2 (12:14→20:55)
[2022-03-04 13:56] LABS: GLUCOMETER DEV NAME(LOC) 6N.2; GLUCOSE,POINT OF CARE 175 MG/DL (70-110)
[2022-03-04 16:34] VITALS: BP 134/72
[2022-03-04 18:11] LABS: GLUCOMETER DEV NAME(LOC) 6N.2; GLUCOSE,POINT OF CARE 141 MG/DL (70-110)
[2022-03-04 20:00] VITALS: BP 131/61
[2022-03-04] MEDS: DIVALPROEX SODIUM 500 MG ER TABLET PO SCH (20:55)
[2022-03-05 04:25] VITALS: BP 105/65
[2022-03-05 05:51] LABS: GLUCOMETER DEV NAME(LOC) 6N.2; GLUCOSE,POINT OF CARE 130 MG/DL (70-110)
[2022-03-05 06:15] LABS: COVID AG,FIA SOURCE NASAL SWAB
[2022-03-05 06:47] LABS: GLUCOMETER DEV NAME(LOC) 6N.2; GLUCOSE,POINT OF CARE 98 MG/DL (70-110)
[2022-03-05 06:52] LABS: BASOPHILS % (AUTO) 0.7 % (0.0-2.0); EOSINOPHILS % (AUTO) 2.3 % (1.0-6.0); HEMATOCRIT 36.5 % (41-53); HEMOGLOBIN 12.6 g/dL (13.5-17.5); LYMPHOCYTES # (AUTO) 2.6 K/uL (1.0-4.8); LYMPHOCYTES % (AUTO) 27.5 % (22.0-44.0); MEAN CORPUSCULAR HEMOGLOBIN 29.3 pg (26.0-34.0); MEAN CORPUSCULAR HGB CONC 34.4 G/dL (31.0-37.0); MEAN CORPUSCULAR VOLUME 85 fL (80-100); MONOCYTES # (AUTO) 0.8 K/uL (0.1-1.0); MONOCYTES % (AUTO) 8.1 % (2.0-9.0); NEUTROPHILS # (AUTO) 5.9 K/uL (1.8-7.7); NEUTROPHILS % (AUTO) 61.4 % (40.0-70.0); PLATELET COUNT (AUTO) 110 K/uL (150-450); RED BLOOD CELL COUNT(AUTO) 4.29 MIL/uL (4.50-5.90); RED CELL DISTRIBUTION WIDTH 16.4 % (11.5-14.5)
[2022-03-05 07:06] LABS: CALCIUM, TOTAL 8.5 mg/dL (8.8-10.5); CREATININE 2.4 mg/dL (0.60-1.30); POTASSIUM 4.2 mmol/L (3.5-5.1); URIC ACID 8.3 mg/dL (2.6-7.2)
[2022-03-05 07:55] VITALS: BP 138/76
[2022-03-05] MEDS: ALLOPURINOL 100 MG TABLET PO SCH (08:31)
[2022-03-05] MEDS: CHOLECALCIFEROL (VIT D3) 5,000 [125 MCG] UNITS CAPSULE PO SCH (08:31)
[2022-03-05] MEDS: FEBUXOSTAT 40 MG TABLET PO SCH (08:31)
[2022-03-05] MEDS: SERTRALINE HCL 100 MG TABLET PO SCH (08:31)
[2022-03-05] MEDS: PANTOPRAZOLE SODIUM 40 MG DR TABLET PO SCH (08:31)
[2022-03-05] MEDS: ATORVASTATIN CALCIUM 40 MG TABLET PO SCH (08:31)
[2022-03-05] MEDS: INSULIN LISPRO 100 UNITS/ML SQ PRN ×2 (11:35→22:08)
[2022-03-05 12:21] LABS: GLUCOMETER DEV NAME(LOC) 6N.2; GLUCOSE,POINT OF CARE 174 MG/DL (70-110)
[2022-03-05 16:09] VITALS: BP 109/64
[2022-03-05] MEDS: DIVALPROEX SODIUM 500 MG ER TABLET PO SCH (22:04)
[2022-03-05 22:05] VITALS: BP 117/80
[2022-03-05] MEDS: ACETAMINOPHEN 325 MG TABLET PO PRN (22:05)
[2022-03-06 00:11] LABS: GLUCOMETER DEV NAME(LOC) 6N.2; GLUCOSE,POINT OF CARE 219 MG/DL (70-110)
[2022-03-06 06:28] LABS: CALCIUM, TOTAL 8.5 mg/dL (8.8-10.5); CREATININE 2.22 mg/dL (0.60-1.30); MAGNESIUM 1.8 mg/dL (1.80-2.40); PHOSPHORUS 4.6 mg/dL (2.5-4.9); POTASSIUM 4.4 mmol/L (3.5-5.1)
[2022-03-06] MEDS: FEBUXOSTAT 40 MG TABLET PO SCH (08:18)
[2022-03-06] MEDS: ATORVASTATIN CALCIUM 40 MG TABLET PO SCH (08:18)
[2022-03-06] MEDS: PANTOPRAZOLE SODIUM 40 MG DR TABLET PO SCH (08:18)
[2022-03-06] MEDS: ALLOPURINOL 100 MG TABLET PO SCH (08:18)
[2022-03-06] MEDS: CHOLECALCIFEROL (VIT D3) 5,000 [125 MCG] UNITS CAPSULE PO SCH (08:18)
[2022-03-06] MEDS: SERTRALINE HCL 100 MG TABLET PO SCH (08:18)
[2022-03-06 08:38] VITALS: BP 127/73
[2022-03-06 08:46] LABS: GLUCOMETER DEV NAME(LOC) 6N.1; GLUCOSE,POINT OF CARE 111 MG/DL (70-110)
[2022-03-06 13:16] LABS: GLUCOMETER DEV NAME(LOC) 6N.2; GLUCOSE,POINT OF CARE 127 MG/DL (70-110)
[2022-03-06 16:11] VITALS: BP 122/70
[2022-03-06 19:01] LABS: GLUCOMETER DEV NAME(LOC) 6N.2; GLUCOSE,POINT OF CARE 119 MG/DL (70-110)
[2022-03-06] MEDS: DIVALPROEX SODIUM 500 MG ER TABLET PO SCH (19:59)
[2022-03-06 20:17] VITALS: BP 112/66
[2022-03-06] MEDS: INSULIN LISPRO 100 UNITS/ML SQ PRN (21:09)
[2022-03-07 00:07] LABS: GLUCOMETER DEV NAME(LOC) 6N.1; GLUCOSE,POINT OF CARE 150 MG/DL (70-110)
[2022-03-07 04:42] VITALS: BP 108/66
[2022-03-07] MEDS: INSULIN LISPRO 100 UNITS/ML SQ PRN ×2 (06:03→21:04)
[2022-03-07 06:26] LABS: GLUCOMETER DEV NAME(LOC) 6N.2; GLUCOSE,POINT OF CARE 205 MG/DL (70-110)
[2022-03-07] MEDS: FEBUXOSTAT 40 MG TABLET PO SCH (08:47)
[2022-03-07] MEDS: SERTRALINE HCL 100 MG TABLET PO SCH (08:48)
[2022-03-07] MEDS: ATORVASTATIN CALCIUM 40 MG TABLET PO SCH (08:48)
[2022-03-07] MEDS: PANTOPRAZOLE SODIUM 40 MG DR TABLET PO SCH (08:48)
[2022-03-07] MEDS: CHOLECALCIFEROL (VIT D3) 5,000 [125 MCG] UNITS CAPSULE PO SCH (08:48)
[2022-03-07] MEDS: ALLOPURINOL 100 MG TABLET PO SCH (08:49)
[2022-03-07] MEDS: ACETAMINOPHEN 325 MG TABLET PO PRN ×2 (08:53→21:04)
[2022-03-07 12:36] LABS: GLUCOMETER DEV NAME(LOC) 6N.1; GLUCOSE,POINT OF CARE 124 MG/DL (70-110)
[2022-03-07 16:07] VITALS: BP 128/77
[2022-03-07 19:11] LABS: GLUCOMETER DEV NAME(LOC) 6N.2; GLUCOSE,POINT OF CARE 101 MG/DL (70-110)
[2022-03-07 19:55] VITALS: BP 106/66
[2022-03-07] MEDS: ZOLPIDEM TARTRATE 5 MG TABLET PO PRN (21:04)
[2022-03-07] MEDS: DIVALPROEX SODIUM 500 MG ER TABLET PO SCH (21:05)
[2022-03-08 04:25] VITALS: BP 102/56
[2022-03-08 06:46] LABS: BASOPHILS % (AUTO) 0.4 % (0.0-2.0); EOSINOPHILS % (AUTO) 5.4 % (1.0-6.0); HEMATOCRIT 35.4 % (41-53); HEMOGLOBIN 12.3 g/dL (13.5-17.5); LYMPHOCYTES # (AUTO) 2.2 K/uL (1.0-4.8); LYMPHOCYTES % (AUTO) 24.9 % (22.0-44.0); MEAN CORPUSCULAR HEMOGLOBIN 29.4 pg (26.0-34.0); MEAN CORPUSCULAR HGB CONC 34.7 G/dL (31.0-37.0); MEAN CORPUSCULAR VOLUME 85 fL (80-100); MONOCYTES # (AUTO) 0.8 K/uL (0.1-1.0); MONOCYTES % (AUTO) 9.4 % (2.0-9.0); NEUTROPHILS # (AUTO) 5.4 K/uL (1.8-7.7); NEUTROPHILS % (AUTO) 59.9 % (40.0-70.0); PLATELET COUNT (AUTO) 106 K/uL (150-450); RED BLOOD CELL COUNT(AUTO) 4.16 MIL/uL (4.50-5.90); RED CELL DISTRIBUTION WIDTH 16.2 % (11.5-14.5)
[2022-03-08 07:06] LABS: CALCIUM, TOTAL 8.8 mg/dL (8.8-10.5); CREATININE 2.43 mg/dL (0.60-1.30); POTASSIUM 3.9 mmol/L (3.5-5.1)
[2022-03-08 07:11] LABS: MAGNESIUM 1.6 mg/dL (1.80-2.40); PHOSPHORUS 4.2 mg/dL (2.5-4.9)
[2022-03-08 08:16] VITALS: BP 126/64
[2022-03-08 09:11] LABS: GLUCOMETER DEV NAME(LOC) 6N.2; GLUCOSE,POINT OF CARE 106 MG/DL (70-110)
[2022-03-08 09:11] LABS: GLUCOMETER DEV NAME(LOC) 6N.1; GLUCOSE,POINT OF CARE 120 MG/DL (70-110)
[2022-03-08 09:11] LABS: GLUCOMETER DEV NAME(LOC) 6N.2; GLUCOSE,POINT OF CARE 175 MG/DL (70-110)
[2022-03-08 09:11] LABS: GLUCOMETER DEV NAME(LOC) 6N.2; GLUCOSE,POINT OF CARE 99 MG/DL (70-110)
[2022-03-08 09:11] LABS: GLUCOMETER DEV NAME(LOC) 6S.1B; GLUCOSE,POINT OF CARE 196 MG/DL (70-110)
[2022-03-08] MEDS: PANTOPRAZOLE SODIUM 40 MG DR TABLET PO SCH (09:25)
[2022-03-08] MEDS: ATORVASTATIN CALCIUM 40 MG TABLET PO SCH (09:25)
[2022-03-08] MEDS: SERTRALINE HCL 100 MG TABLET PO SCH (09:25)
[2022-03-08] MEDS: CHOLECALCIFEROL (VIT D3) 5,000 [125 MCG] UNITS CAPSULE PO SCH (09:25)
[2022-03-08] MEDS: FEBUXOSTAT 40 MG TABLET PO SCH (09:25)
[2022-03-08] MEDS: ALLOPURINOL 100 MG TABLET PO SCH (09:26)
[2022-03-08] MEDS: INSULIN LISPRO 100 UNITS/ML SQ PRN (11:53)
[2022-03-08 14:51] LABS: GLUCOMETER DEV NAME(LOC) 6N.1; GLUCOSE,POINT OF CARE 215 MG/DL (70-110)
== END 2022-03-08 15:00 | disposition home or self-care (01) | DRG 469 ==
LOC: 6S 12:31
PROVIDERS: ADMIT Internal Medicine; ATTEND Internal Medicine
DX: N17.9 Acute kidney failure, unspecified (principal); D72.10 Eosinophilia, unspecified; D69.6 Thrombocytopenia, unspecified; K92.2 Gastrointestinal hemorrhage, unspecified; E87.1 Hypo-osmolality and hyponatremia; E86.0 Dehydration; I12.9 Hypertensive chronic kidney disease with stage 1 through stage 4 chronic kidney disease, or unspecified chronic kidney disease; M47.812 Spondylosis without myelopathy or radiculopathy, cervical region; E11.22 Type 2 diabetes mellitus with diabetic chronic kidney disease; D64.9 Anemia, unspecified; E66.9 Obesity, unspecified; E78.5 Hyperlipidemia, unspecified; J44.9 Chronic obstructive pulmonary disease, unspecified; K21.9 Gastro-esophageal reflux disease without esophagitis; E87.5 Hyperkalemia; F31.30 Bipolar disorder, current episode depressed, mild or moderate severity, unspecified; Z20.822 Contact with and (suspected) exposure to COVID-19; M10.9 Gout, unspecified; N18.9 Chronic kidney disease, unspecified; Z79.4 Long term (current) use of insulin; Z79.899 Other long term (current) drug therapy; Z79.84 Long term (current) use of oral hypoglycemic drugs; Z68.30 Body mass index [BMI] 30.0-30.9, adult
CPT/HCPCS: 76770; 80048; 80053; 80061; 81001; 82570; 82962; 83036; 83735; 84100; 84300; 84540; 84550; 85014; 85018; 85025; 85651; 87081; J2405; J7030; J7040; Q9967

== ENCOUNTER 2022-05-05 15:28 | Inpatient (IN) | payer MEDICAID ==
[~2022-05-05] VITALS: Ht 188 cm; Wt 113.6 kg
[~2022-05-05 15:28] MED LIST changes: -DOXY-354 PO; +METF-1211 PO; -MULT-1119 PO; +MULT-1239 PO; -NEOM7.5C2 TP
[2022-05-05 16:33] LABS: BASOPHILS % (AUTO) 0.4 % (0.0-2.0); HEMOGLOBIN 12.7 g/dL (13.5-17.5); LYMPHOCYTES # (AUTO) 2.4 K/uL (1.0-4.8); LYMPHOCYTES % (AUTO) 32.8 % (22.0-44.0); MEAN CORPUSCULAR HEMOGLOBIN 29.9 pg (26.0-34.0); MEAN CORPUSCULAR HGB CONC 34.4 G/dL (31.0-37.0); MEAN CORPUSCULAR VOLUME 87 fL (80-100); MONOCYTES # (AUTO) 0.4 K/uL (0.1-1.0); MONOCYTES % (AUTO) 5.4 % (2.0-9.0); NEUTROPHILS # (AUTO) 4.1 K/uL (1.8-7.7); NEUTROPHILS % (AUTO) 56.4 % (40.0-70.0); PLATELET COUNT (AUTO) 151 K/uL (150-450); RED BLOOD CELL COUNT(AUTO) 4.26 MIL/uL (4.50-5.90)
[2022-05-05 16:43] LABS: ANION GAP 18 mmol/L (8-16); CALCIUM, TOTAL 7.8 mg/dL (8.8-10.5); CARBON DIOXIDE 18 mmol/L (22-29); CHLORIDE 102 mmol/L (98-107); CREATININE 2.38 mg/dL (0.60-1.30); GLUCOSE,RANDOM 111 mg/dL (70-110); POTASSIUM 3.2 mmol/L (3.5-5.1); SODIUM SERUM 138 mmol/L (136-145); UREA NITROGEN, BLOOD 29 mg/dL (7-18)
[2022-05-05 16:48] LABS: GLOMERULAR FILTR. RATE CALC 29 mL/min (>60)
[2022-05-05 16:51] LABS: ALANINE AMINOTRANSFERASE 22 U/L (12-78); ALBUMIN 3.9 g/dL (3.4-5.0); ALKALINE PHOSPHATASE 68 U/L (46-116); ASPARTATE AMINOTRANSFERASE 26 U/L (15-37); BILIRUBIN,TOTAL 0.2 mg/dL (0.1-1.0); TOTAL PROTEIN, SERUM 7.6 g/dL (6.4-8.2)
[2022-05-05 16:54] LABS: ACETAMINOPHEN < 2 mcg/mL (10-30); VALPROIC ACID < 3 mcg/mL (50-100)
[2022-05-05 17:03] LABS: INR 0.9 (0.9-1.1); PROTHROMBIN TIME 10.1 SEC (9.4-11.6)
[2022-05-05] MEDS ORDERED: POTASSIUM CHLORIDE 20 MEQ ER TABLET PO ONE (17:15)
[2022-05-05] MEDS ORDERED: SODIUM CHLORIDE 0.9% 1,000 ML IV ONE (17:15)
[2022-05-05 19:12] LABS: APPEARANCE,URINE CLEAR (CLEAR); BILIRUBIN,URINE NEGATIVE (NEGATIVE); GLUCOSE, URINE (UA) NEGATIVE (NEGATIVE); KETONES,URINE NEGATIVE (NEGATIVE); LEUKOCYTE ESTERASE ,URINE NEGATIVE (NEGATIVE); NITRATE,URINE NEGATIVE (NEGATIVE); OCCULT BLOOD,URINE SMALL (NEGATIVE); PROTEIN,URINE TRACE mg/dL (NEGATIVE); SPECIFIC GRAVITIY, URINE 1.007 (1.003-1.030); UROBILINOGEN,URINE <=1.0 mg/dL (<=1.0)
[2022-05-05 19:21] LABS: AMPHET/METH SCREEN,URINE NEGATIVE (NEGATIVE); BARBITURATE SCREEN, URINE NEGATIVE (NEGATIVE); BENZODIAZEPINES SCREEN,URINE NEGATIVE (NEGATIVE); CANNABINOID SCREEN,URINE NEGATIVE (NEGATIVE); COCAINE SCREEN,URINE NEGATIVE (NEGATIVE); METHADONE SCREEN, URINE NEGATIVE (NEGATIVE); OPIATE SCREEN,URINE NEGATIVE (NEGATIVE)
[2022-05-05 19:22] LABS: PHENCYCLIDINE SCREEN,URINE NEGATIVE (NEGATIVE)
[2022-05-05 19:28] LABS: BACTERIA,URINE None Seen /HPF (None Seen); RBC,URINE 0-2 /HPF (0-2); WBC,URINE None Seen /HPF (0-5)
[2022-05-05] MEDS ORDERED: HALOPERIDOL 5 MG TABLET PO PRN (21:30)
[2022-05-05] MEDS ORDERED: LORazepam 2 MG TABLET PO PRN (21:30)
[2022-05-05] MEDS ORDERED: ZOLPIDEM TARTRATE 10 MG TABLET PO PRN (21:30)
[2022-05-05 22:31] LABS: COVID AG,FIA SOURCE NASAL SWAB
[2022-05-06] VITALS (12 sets, daily range): BP systolic 115–143; BP diastolic 59–91
[2022-05-06] MEDS ORDERED: INSULIN LISPRO 100 UNITS/ML SQ ONE (03:30)
[2022-05-06] MEDS ORDERED: GLUCAGON,HUMAN RECOMBINANT 1 MG VIAL IM PRN (03:30)
[2022-05-06 03:37] LABS: GLUCOMETER DEV NAME(LOC) BV2S.; GLUCOSE,POINT OF CARE 123 MG/DL (70-110)
[2022-05-06] MEDS ORDERED: ALBUTEROL SULFATE HFA 90 MCG/PUFF 8 GM INHALER IH PRN ×2 (03:45→06:30)
[2022-05-06] MEDS ORDERED: ACETAMINOPHEN 325 MG TABLET PO PRN ×2 (03:45→06:30)
[2022-05-06] MEDS ORDERED: PNEUMOCOCCAL VACCINE POLYVALENT 0.5 ML VIAL [PPSV23] IM. ONE (04:15)
[2022-05-06] MEDS ORDERED: MAGNESIUM HYDROXIDE SUSPENSION 30 ML UDCUP PO PRN (06:30)
[2022-05-06] MEDS ORDERED: GuaiFENesin/D-METHORPHAN [SUGAR-FREE] 200-20MG/10 ML SYRUP UDCUP PO PRN (06:30)
[2022-05-06] MEDS ORDERED: LOPERAMIDE HCL 2 MG CAPSULE PO PRN (06:30)
[2022-05-06] MEDS ORDERED: PETROLATUM,WHITE 28 GM JELLY TP PRN (06:30)
[2022-05-06] MEDS ORDERED: NICOTINE 14 MG/24 HOUR PATCH TD PRN (06:30)
[2022-05-06] MEDS ORDERED: DOCUSATE SODIUM 100 MG CAPSULE PO PRN (06:30)
[2022-05-06] MEDS ORDERED: CloNIDine HCL 0.1 MG TABLET PO PRN (06:30)
[2022-05-06] MEDS ORDERED: ONDANSETRON HCL 4 MG TABLET PO PRN (06:30)
[2022-05-06] MEDS ORDERED: MAG HYDROX/AL HYDROX/SIMETH ES 30 ML SUSPENSION UDCUP PO PRN (06:30)
[2022-05-06 06:58] LABS: GLUCOMETER DEV NAME(LOC) BV2X.2; GLUCOSE,POINT OF CARE 114 MG/DL (70-110)
[2022-05-06] MEDS: ATORVASTATIN CALCIUM 40 MG TABLET PO SCH (08:24)
[2022-05-06] MEDS: PANTOPRAZOLE SODIUM 40 MG DR TABLET PO SCH (08:24)
[2022-05-06 11:21] LABS: GLUCOMETER DEV NAME(LOC) BV2X.2; GLUCOSE,POINT OF CARE 136 MG/DL (70-110)
[2022-05-06] MEDS ORDERED: CYANOCOBALAMIN 1,000 MCG/ML VIAL IM ONE (13:00)
[2022-05-06] MEDS ORDERED: LORazepam 2 MG TABLET PO PRN (13:00)
[2022-05-06] MEDS: FOLIC ACID 1 MG TABLET PO SCH (13:22)
[2022-05-06] MEDS: MULTIVITAMINS WITH MINERALS, THERAPEUTIC TABLET PO SCH (13:22)
[2022-05-06] MEDS: ALLOPURINOL 100 MG TABLET PO SCH (13:23)
[2022-05-06] MEDS: CHOLECALCIFEROL (VIT D3) 5,000 [125 MCG] UNITS CAPSULE PO SCH (13:23)
[2022-05-06] MEDS: SODIUM BICARBONATE 650 MG TABLET PO SCH (13:23)
[2022-05-06] MEDS: SERTRALINE HCL 100 MG TABLET PO SCH (13:23)
[2022-05-06] MEDS: THIAMINE 100 MG TABLET PO SCH (16:35)
[2022-05-06 19:11] LABS: GLUCOMETER DEV NAME(LOC) BV2X.2; GLUCOSE,POINT OF CARE 118 MG/DL (70-110)
[2022-05-06] MEDS: DIVALPROEX SODIUM 500 MG ER TABLET PO SCH (20:24)
[2022-05-06 21:51] LABS: GLUCOMETER DEV NAME(LOC) BV2X.2; GLUCOSE,POINT OF CARE 133 MG/DL (70-110)
[2022-05-07 06:16] LABS: GLUCOMETER DEV NAME(LOC) BV2X.2; GLUCOSE,POINT OF CARE 121 MG/DL (70-110)
[2022-05-07] MEDS ORDERED: LORazepam 2 MG TABLET PO PRN (07:00)
[2022-05-07 07:24] LABS: HEMOGLOBIN A1C 5.5 % (3.8-5.6)
[2022-05-07 07:26] LABS: CALCIUM, TOTAL 8.5 mg/dL (8.8-10.5); CREATININE 1.91 mg/dL (0.60-1.30); POTASSIUM 3.9 mmol/L (3.5-5.1)
[2022-05-07 08:11] VITALS: BP 111/64
[2022-05-07 08:48] VITALS: BP 111/64
[2022-05-07] MEDS: PANTOPRAZOLE SODIUM 40 MG DR TABLET PO SCH (08:50)
[2022-05-07] MEDS: MULTIVITAMINS WITH MINERALS, THERAPEUTIC TABLET PO SCH (08:51)
[2022-05-07] MEDS: THIAMINE 100 MG TABLET PO SCH ×2 (08:51→16:33)
[2022-05-07] MEDS: LORazepam 2 MG TABLET PO SCH ×4 (08:51→20:20)
[2022-05-07] MEDS: ALLOPURINOL 100 MG TABLET PO SCH (08:51)
[2022-05-07] MEDS: ATORVASTATIN CALCIUM 40 MG TABLET PO SCH (08:51)
[2022-05-07] MEDS: SODIUM BICARBONATE 650 MG TABLET PO SCH (08:51)
[2022-05-07] MEDS: CHOLECALCIFEROL (VIT D3) 5,000 [125 MCG] UNITS CAPSULE PO SCH (08:51)
[2022-05-07] MEDS: FOLIC ACID 1 MG TABLET PO SCH (08:51)
[2022-05-07] MEDS: SERTRALINE HCL 100 MG TABLET PO SCH (08:51)
[2022-05-07 11:26] LABS: GLUCOMETER DEV NAME(LOC) BV2X.2; GLUCOSE,POINT OF CARE 134 MG/DL (70-110)
[2022-05-07 12:02] VITALS: BP 110/60
[2022-05-07 16:40] VITALS: BP 115/75
[2022-05-07] MEDS: DIVALPROEX SODIUM 500 MG ER TABLET PO SCH (20:20)
[2022-05-07 20:34] VITALS: BP 126/66
[2022-05-07 20:49] VITALS: BP 126/66
[2022-05-07 20:55] LABS: GLUCOMETER DEV NAME(LOC) BV2X.2; GLUCOSE,POINT OF CARE 137 MG/DL (70-110)
[2022-05-08 05:18] VITALS: BP 135/79
[2022-05-08 07:01] LABS: CALCIUM, TOTAL 8.5 mg/dL (8.8-10.5); CREATININE 1.86 mg/dL (0.60-1.30); POTASSIUM 4.2 mmol/L (3.5-5.1)
[2022-05-08 07:46] LABS: GLUCOMETER DEV NAME(LOC) BV2X.2; GLUCOSE,POINT OF CARE 104 MG/DL (70-110)
[2022-05-08] MEDS: MULTIVITAMINS WITH MINERALS, THERAPEUTIC TABLET PO SCH (08:32)
[2022-05-08] MEDS: ATORVASTATIN CALCIUM 40 MG TABLET PO SCH (08:32)
[2022-05-08] MEDS: SODIUM BICARBONATE 650 MG TABLET PO SCH (08:32)
[2022-05-08] MEDS: FOLIC ACID 1 MG TABLET PO SCH (08:32)
[2022-05-08] MEDS: ALLOPURINOL 100 MG TABLET PO SCH (08:32)
[2022-05-08] MEDS: LORazepam 2 MG TABLET PO SCH ×4 (08:32→20:35)
[2022-05-08] MEDS: PANTOPRAZOLE SODIUM 40 MG DR TABLET PO SCH (08:32)
[2022-05-08] MEDS: SERTRALINE HCL 100 MG TABLET PO SCH (08:32)
[2022-05-08] MEDS: CHOLECALCIFEROL (VIT D3) 5,000 [125 MCG] UNITS CAPSULE PO SCH (08:33)
[2022-05-08] MEDS: THIAMINE 100 MG TABLET PO SCH ×2 (08:33→16:29)
[2022-05-08 09:43] VITALS: BP 138/89
[2022-05-08 09:45] VITALS: BP 138/71
[2022-05-08 11:01] LABS: GLUCOMETER DEV NAME(LOC) BV2X.2; GLUCOSE,POINT OF CARE 106 MG/DL (70-110)
[2022-05-08 12:27] VITALS: BP 133/87
[2022-05-08 16:02] VITALS: BP 130/75
[2022-05-08 16:26] LABS: GLUCOMETER DEV NAME(LOC) BV2X.2; GLUCOSE,POINT OF CARE 117 MG/DL (70-110)
[2022-05-08 20:30] LABS: GLUCOMETER DEV NAME(LOC) BV2X.2; GLUCOSE,POINT OF CARE 128 MG/DL (70-110)
[2022-05-08] MEDS: DIVALPROEX SODIUM 500 MG ER TABLET PO SCH (20:36)
[2022-05-08 20:46] VITALS: BP 137/84
[2022-05-09 06:41] LABS: GLUCOMETER DEV NAME(LOC) BV2X.2; GLUCOSE,POINT OF CARE 115 MG/DL (70-110)
[2022-05-09] MEDS ORDERED: LORazepam 1 MG TABLET PO PRN (07:00)
[2022-05-09 08:00] VITALS: BP 126/80
[2022-05-09 08:01] VITALS: BP 126/80
[2022-05-09] MEDS: ALLOPURINOL 100 MG TABLET PO SCH (08:58)
[2022-05-09] MEDS: LORazepam 1 MG TABLET PO SCH ×4 (08:58→20:47)
[2022-05-09] MEDS: ATORVASTATIN CALCIUM 40 MG TABLET PO SCH (08:58)
[2022-05-09] MEDS: FOLIC ACID 1 MG TABLET PO SCH (08:59)
[2022-05-09] MEDS: PANTOPRAZOLE SODIUM 40 MG DR TABLET PO SCH (08:59)
[2022-05-09] MEDS: MULTIVITAMINS WITH MINERALS, THERAPEUTIC TABLET PO SCH (08:59)
[2022-05-09] MEDS: SERTRALINE HCL 100 MG TABLET PO SCH (08:59)
[2022-05-09] MEDS: THIAMINE 100 MG TABLET PO SCH ×2 (08:59→16:15)
[2022-05-09] MEDS: SODIUM BICARBONATE 650 MG TABLET PO SCH (09:00)
[2022-05-09] MEDS: CHOLECALCIFEROL (VIT D3) 5,000 [125 MCG] UNITS CAPSULE PO SCH (12:48)
[2022-05-09 16:42] LABS: GLUCOMETER DEV NAME(LOC) BV2X.2; GLUCOSE,POINT OF CARE 105 MG/DL (70-110)
[2022-05-09 20:17] VITALS: BP 139/84
[2022-05-09] MEDS: DIVALPROEX SODIUM 500 MG ER TABLET PO SCH (20:47)
[2022-05-09 21:17] LABS: GLUCOMETER DEV NAME(LOC) BV2X.2; GLUCOSE,POINT OF CARE 126 MG/DL (70-110)
[2022-05-10 06:32] LABS: GLUCOMETER DEV NAME(LOC) BV2X.2; GLUCOSE,POINT OF CARE 112 MG/DL (70-110)
[2022-05-10] MEDS ORDERED: LORazepam 1 MG TABLET PO PRN (07:00)
[2022-05-10] MEDS: ATORVASTATIN CALCIUM 40 MG TABLET PO SCH (08:17)
[2022-05-10] MEDS: CHOLECALCIFEROL (VIT D3) 5,000 [125 MCG] UNITS CAPSULE PO SCH (08:17)
[2022-05-10] MEDS: ALLOPURINOL 100 MG TABLET PO SCH (08:17)
[2022-05-10] MEDS: THIAMINE 100 MG TABLET PO SCH ×2 (08:17→16:38)
[2022-05-10] MEDS: SODIUM BICARBONATE 650 MG TABLET PO SCH (08:17)
[2022-05-10] MEDS: MULTIVITAMINS WITH MINERALS, THERAPEUTIC TABLET PO SCH (08:17)
[2022-05-10] MEDS: FOLIC ACID 1 MG TABLET PO SCH (08:17)
[2022-05-10] MEDS: PANTOPRAZOLE SODIUM 40 MG DR TABLET PO SCH (08:17)
[2022-05-10] MEDS: SERTRALINE HCL 100 MG TABLET PO SCH (08:18)
[2022-05-10 08:40] VITALS: BP 152/76
[2022-05-10 09:21] LABS: GLUCOMETER DEV NAME(LOC) POC.BV
[2022-05-10 10:36] VITALS: BP 132/78
[2022-05-10 11:32] LABS: GLUCOMETER DEV NAME(LOC) BV2X.2; GLUCOSE,POINT OF CARE 153 MG/DL (70-110)
[2022-05-10] MEDS: INSULIN LISPRO 100 UNITS/ML SQ PRN (11:37)
[2022-05-10 16:51] LABS: GLUCOMETER DEV NAME(LOC) BV2X.2; GLUCOSE,POINT OF CARE 94 MG/DL (70-110)
[2022-05-10] MEDS: DIVALPROEX SODIUM 500 MG ER TABLET PO SCH (20:37)
[2022-05-10 20:46] VITALS: BP 120/67
[2022-05-10 22:00] LABS: GLUCOMETER DEV NAME(LOC) BV2X.2; GLUCOSE,POINT OF CARE 137 MG/DL (70-110)
[2022-05-10 22:40] VITALS: BP 120/67
[2022-05-11 06:26] LABS: GLUCOMETER DEV NAME(LOC) BV2X.2; GLUCOSE,POINT OF CARE 113 MG/DL (70-110)
[2022-05-11 07:33] LABS: CALCIUM, TOTAL 8.7 mg/dL (8.8-10.5); CREATININE 1.87 mg/dL (0.60-1.30); POTASSIUM 4.4 mmol/L (3.5-5.1)
[2022-05-11 08:28] VITALS: BP_SYST 104; BP_SYST 107; BP_DIAS 64
[2022-05-11] MEDS: THIAMINE 100 MG TABLET PO SCH ×2 (09:17→16:15)
[2022-05-11] MEDS: ALLOPURINOL 100 MG TABLET PO SCH (09:17)
[2022-05-11] MEDS: CHOLECALCIFEROL (VIT D3) 5,000 [125 MCG] UNITS CAPSULE PO SCH (09:17)
[2022-05-11] MEDS: PANTOPRAZOLE SODIUM 40 MG DR TABLET PO SCH (09:17)
[2022-05-11] MEDS: MULTIVITAMINS WITH MINERALS, THERAPEUTIC TABLET PO SCH (09:17)
[2022-05-11] MEDS: FOLIC ACID 1 MG TABLET PO SCH (09:17)
[2022-05-11] MEDS: SERTRALINE HCL 100 MG TABLET PO SCH (09:17)
[2022-05-11] MEDS: ATORVASTATIN CALCIUM 40 MG TABLET PO SCH (11:21)
[2022-05-11] MEDS: SODIUM BICARBONATE 650 MG TABLET PO SCH (11:22)
[2022-05-11 11:30] LABS: GLUCOMETER DEV NAME(LOC) BV2X.2; GLUCOSE,POINT OF CARE 107 MG/DL (70-110)
[2022-05-11 17:21] LABS: GLUCOMETER DEV NAME(LOC) BV2X.2; GLUCOSE,POINT OF CARE 152 MG/DL (70-110)
[2022-05-11] MEDS: INSULIN LISPRO 100 UNITS/ML SQ PRN (19:18)
[2022-05-11] MEDS: DIVALPROEX SODIUM 500 MG ER TABLET PO SCH (20:05)
[2022-05-11 20:23] VITALS: BP 129/68
[2022-05-11 20:36] LABS: GLUCOMETER DEV NAME(LOC) BV2X.2; GLUCOSE,POINT OF CARE 115 MG/DL (70-110)
[2022-05-11] MEDS: IBUPROFEN 400 MG TABLET PO PRN (20:51)
[2022-05-12 06:57] LABS: GLUCOMETER DEV NAME(LOC) BV2X.2; GLUCOSE,POINT OF CARE 84 MG/DL (70-110)
[2022-05-12 07:41] LABS: CHOL/HDL RATIO 4.2 (4.2-7.3)
[2022-05-12] MEDS: ATORVASTATIN CALCIUM 40 MG TABLET PO SCH (09:01)
[2022-05-12 09:02] VITALS: BP 128/72
[2022-05-12] MEDS: SERTRALINE HCL 100 MG TABLET PO SCH (09:02)
[2022-05-12] MEDS: THIAMINE 100 MG TABLET PO SCH ×2 (09:02→16:37)
[2022-05-12] MEDS: PANTOPRAZOLE SODIUM 40 MG DR TABLET PO SCH (09:02)
[2022-05-12] MEDS: FOLIC ACID 1 MG TABLET PO SCH (09:02)
[2022-05-12] MEDS: MULTIVITAMINS WITH MINERALS, THERAPEUTIC TABLET PO SCH (09:02)
[2022-05-12] MEDS: SODIUM BICARBONATE 650 MG TABLET PO SCH (09:02)
[2022-05-12] MEDS: ALLOPURINOL 100 MG TABLET PO SCH (09:02)
[2022-05-12] MEDS: CHOLECALCIFEROL (VIT D3) 5,000 [125 MCG] UNITS CAPSULE PO SCH (09:02)
[2022-05-12] MEDS: IBUPROFEN 400 MG TABLET PO PRN (10:46)
[2022-05-12] MEDS: ARIPiprazole 5 MG TABLET PO SCH (10:46)
[2022-05-12 11:36] LABS: GLUCOMETER DEV NAME(LOC) BV2X.2; GLUCOSE,POINT OF CARE 86 MG/DL (70-110)
[2022-05-12 17:36] LABS: GLUCOMETER DEV NAME(LOC) BV2X.2; GLUCOSE,POINT OF CARE 118 MG/DL (70-110)
[2022-05-12 20:20] VITALS: BP 123/74
[2022-05-12] MEDS: DIVALPROEX SODIUM 500 MG ER TABLET PO SCH (20:21)
[2022-05-12 21:31] LABS: GLUCOMETER DEV NAME(LOC) BV2X.2; GLUCOSE,POINT OF CARE 124 MG/DL (70-110)
[2022-05-13] MEDS: IBUPROFEN 400 MG TABLET PO PRN (03:18)
[2022-05-13 06:46] LABS: GLUCOMETER DEV NAME(LOC) BV2X.2; GLUCOSE,POINT OF CARE 134 MG/DL (70-110)
[2022-05-13 08:01] VITALS: BP 130/74
[2022-05-13] MEDS: THIAMINE 100 MG TABLET PO SCH ×2 (08:23→16:26)
[2022-05-13] MEDS: MULTIVITAMINS WITH MINERALS, THERAPEUTIC TABLET PO SCH (08:23)
[2022-05-13] MEDS: ALLOPURINOL 100 MG TABLET PO SCH (08:23)
[2022-05-13] MEDS: SERTRALINE HCL 100 MG TABLET PO SCH (08:23)
[2022-05-13] MEDS: ARIPiprazole 5 MG TABLET PO SCH (08:23)
[2022-05-13] MEDS: ATORVASTATIN CALCIUM 40 MG TABLET PO SCH (08:23)
[2022-05-13] MEDS: FOLIC ACID 1 MG TABLET PO SCH (08:23)
[2022-05-13] MEDS: SODIUM BICARBONATE 650 MG TABLET PO SCH (08:24)
[2022-05-13] MEDS: CHOLECALCIFEROL (VIT D3) 5,000 [125 MCG] UNITS CAPSULE PO SCH (08:24)
[2022-05-13] MEDS: PANTOPRAZOLE SODIUM 40 MG DR TABLET PO SCH (08:24)
[2022-05-13 14:15] LABS: GLUCOMETER DEV NAME(LOC) BV2X.2; GLUCOSE,POINT OF CARE 118 MG/DL (70-110)
[2022-05-13 17:22] LABS: GLUCOMETER DEV NAME(LOC) BV2X.2; GLUCOSE,POINT OF CARE 116 MG/DL (70-110)
[2022-05-13 20:05] VITALS: BP 117/69
[2022-05-13] MEDS: DIVALPROEX SODIUM 500 MG ER TABLET PO SCH (20:22)
[2022-05-13 21:46] LABS: GLUCOMETER DEV NAME(LOC) BV2X.2; GLUCOSE,POINT OF CARE 120 MG/DL (70-110)
[2022-05-14] MEDS: IBUPROFEN 400 MG TABLET PO PRN (01:38)
[2022-05-14 06:26] LABS: GLUCOMETER DEV NAME(LOC) BV2X.2; GLUCOSE,POINT OF CARE 162 MG/DL (70-110)
[2022-05-14] MEDS: INSULIN LISPRO 100 UNITS/ML SQ PRN (06:46)
[2022-05-14 08:07] VITALS: BP 142/90
[2022-05-14] MEDS: ARIPiprazole 5 MG TABLET PO SCH (08:30)
[2022-05-14] MEDS: PANTOPRAZOLE SODIUM 40 MG DR TABLET PO SCH (08:30)
[2022-05-14] MEDS: CHOLECALCIFEROL (VIT D3) 5,000 [125 MCG] UNITS CAPSULE PO SCH (08:30)
[2022-05-14] MEDS: SERTRALINE HCL 100 MG TABLET PO SCH (08:30)
[2022-05-14] MEDS: SODIUM BICARBONATE 650 MG TABLET PO SCH (08:30)
[2022-05-14] MEDS: ALLOPURINOL 100 MG TABLET PO SCH (08:30)
[2022-05-14] MEDS: MULTIVITAMINS WITH MINERALS, THERAPEUTIC TABLET PO SCH (08:30)
[2022-05-14] MEDS: THIAMINE 100 MG TABLET PO SCH ×2 (08:30→16:19)
[2022-05-14] MEDS: ATORVASTATIN CALCIUM 40 MG TABLET PO SCH (08:30)
[2022-05-14] MEDS: FOLIC ACID 1 MG TABLET PO SCH (08:30)
[2022-05-14 13:47] LABS: GLUCOMETER DEV NAME(LOC) BV2X.2; GLUCOSE,POINT OF CARE 123 MG/DL (70-110)
[2022-05-14 17:11] LABS: GLUCOMETER DEV NAME(LOC) BV2X.2; GLUCOSE,POINT OF CARE 126 MG/DL (70-110)
[2022-05-14 20:10] VITALS: BP 110/72
[2022-05-14] MEDS: DIVALPROEX SODIUM 500 MG ER TABLET PO SCH (20:34)
[2022-05-14 21:01] LABS: GLUCOMETER DEV NAME(LOC) BV2X.2; GLUCOSE,POINT OF CARE 119 MG/DL (70-110)
[2022-05-15] VITALS (9 sets, daily range): BP systolic 118–142; BP diastolic 63–94
[2022-05-15 06:51] LABS: GLUCOMETER DEV NAME(LOC) BV2X.2; GLUCOSE,POINT OF CARE 122 MG/DL (70-110)
[2022-05-15] MEDS: SODIUM BICARBONATE 650 MG TABLET PO SCH (08:26)
[2022-05-15] MEDS: ALLOPURINOL 100 MG TABLET PO SCH (08:26)
[2022-05-15] MEDS: CHOLECALCIFEROL (VIT D3) 5,000 [125 MCG] UNITS CAPSULE PO SCH (08:26)
[2022-05-15] MEDS: ATORVASTATIN CALCIUM 40 MG TABLET PO SCH (08:26)
[2022-05-15] MEDS: ARIPiprazole 5 MG TABLET PO SCH (08:26)
[2022-05-15] MEDS: FOLIC ACID 1 MG TABLET PO SCH (08:26)
[2022-05-15] MEDS: MULTIVITAMINS WITH MINERALS, THERAPEUTIC TABLET PO SCH (08:27)
[2022-05-15] MEDS: PANTOPRAZOLE SODIUM 40 MG DR TABLET PO SCH (08:27)
[2022-05-15] MEDS: THIAMINE 100 MG TABLET PO SCH ×2 (08:27→16:20)
[2022-05-15] MEDS: SERTRALINE HCL 100 MG TABLET PO SCH (08:27)
[2022-05-15] MEDS: IBUPROFEN 400 MG TABLET PO PRN (08:39)
[2022-05-15 12:31] LABS: GLUCOMETER DEV NAME(LOC) BV2X.2; GLUCOSE,POINT OF CARE 100 MG/DL (70-110)
[2022-05-15 16:41] LABS: GLUCOMETER DEV NAME(LOC) BV2X.2; GLUCOSE,POINT OF CARE 121 MG/DL (70-110)
[2022-05-15] MEDS: DIVALPROEX SODIUM 500 MG ER TABLET PO SCH (20:23)
[2022-05-15 20:52] LABS: GLUCOMETER DEV NAME(LOC) BV2X.2; GLUCOSE,POINT OF CARE 135 MG/DL (70-110)
[2022-05-16 08:20] VITALS: BP 138/75
[2022-05-16] MEDS: THIAMINE 100 MG TABLET PO SCH (09:18)
[2022-05-16] MEDS: SERTRALINE HCL 100 MG TABLET PO SCH (09:18)
[2022-05-16] MEDS: PANTOPRAZOLE SODIUM 40 MG DR TABLET PO SCH (09:18)
[2022-05-16] MEDS: MULTIVITAMINS WITH MINERALS, THERAPEUTIC TABLET PO SCH (09:18)
[2022-05-16] MEDS: ALLOPURINOL 100 MG TABLET PO SCH (09:19)
[2022-05-16] MEDS: SODIUM BICARBONATE 650 MG TABLET PO SCH (09:19)
[2022-05-16] MEDS: ARIPiprazole 5 MG TABLET PO SCH (09:19)
[2022-05-16] MEDS: ATORVASTATIN CALCIUM 40 MG TABLET PO SCH (09:19)
[2022-05-16] MEDS: CHOLECALCIFEROL (VIT D3) 5,000 [125 MCG] UNITS CAPSULE PO SCH (09:20)
[2022-05-16 15:41] LABS: GLUCOMETER DEV NAME(LOC) BV2X.2; GLUCOSE,POINT OF CARE 137 MG/DL (70-110)
[2022-05-16 15:41] LABS: GLUCOMETER DEV NAME(LOC) BV2X.2; GLUCOSE,POINT OF CARE 101 MG/DL (70-110)
[2022-05-16 17:21] LABS: GLUCOMETER DEV NAME(LOC) BV2X.2; GLUCOSE,POINT OF CARE 125 MG/DL (70-110)
[2022-05-16 20:15] VITALS: BP 140/98
[2022-05-16] MEDS: DIVALPROEX SODIUM 500 MG ER TABLET PO SCH (20:32)
[2022-05-16 21:06] LABS: GLUCOMETER DEV NAME(LOC) BV2S.; GLUCOSE,POINT OF CARE 194 MG/DL (70-110)
[2022-05-16] MEDS: INSULIN LISPRO 100 UNITS/ML SQ PRN (21:06)
[2022-05-17 05:01] VITALS: BP 148/86
[2022-05-17] MEDS: IBUPROFEN 400 MG TABLET PO PRN (05:01)
[2022-05-17 07:06] LABS: GLUCOMETER DEV NAME(LOC) BV2X.2; GLUCOSE,POINT OF CARE 123 MG/DL (70-110)
[2022-05-17 08:41] VITALS: BP 130/70
[2022-05-17 09:41] LABS: GLUCOMETER DEV NAME(LOC) POC.BV
[2022-05-17] MEDS: ARIPiprazole 5 MG TABLET PO SCH (10:33)
[2022-05-17] MEDS: ATORVASTATIN CALCIUM 40 MG TABLET PO SCH (10:33)
[2022-05-17] MEDS: CHOLECALCIFEROL (VIT D3) 5,000 [125 MCG] UNITS CAPSULE PO SCH (10:34)
[2022-05-17] MEDS: SODIUM BICARBONATE 650 MG TABLET PO SCH (10:34)
[2022-05-17] MEDS: SERTRALINE HCL 100 MG TABLET PO SCH (10:34)
[2022-05-17] MEDS: MULTIVITAMINS WITH MINERALS, THERAPEUTIC TABLET PO SCH (10:34)
[2022-05-17] MEDS: PANTOPRAZOLE SODIUM 40 MG DR TABLET PO SCH (10:34)
[2022-05-17] MEDS: ALLOPURINOL 100 MG TABLET PO SCH (10:34)
[2022-05-17] MEDS: INSULIN LISPRO 100 UNITS/ML SQ PRN (11:31)
[2022-05-17 11:41] LABS: GLUCOMETER DEV NAME(LOC) BV2X.2; GLUCOSE,POINT OF CARE 162 MG/DL (70-110)
[2022-05-17 16:46] LABS: GLUCOMETER DEV NAME(LOC) BV2X.2; GLUCOSE,POINT OF CARE 91 MG/DL (70-110)
[2022-05-17 20:24] VITALS: BP 105/61
[2022-05-17] MEDS: DIVALPROEX SODIUM 500 MG ER TABLET PO SCH (20:28)
[2022-05-18 07:14] LABS: CALCIUM, TOTAL 8.3 mg/dL (8.8-10.5); CREATININE 2.43 mg/dL (0.60-1.30); POTASSIUM 4.6 mmol/L (3.5-5.1)
[2022-05-18 08:46] VITALS: BP 152/78
[2022-05-18] MEDS: CHOLECALCIFEROL (VIT D3) 5,000 [125 MCG] UNITS CAPSULE PO SCH (09:20)
[2022-05-18] MEDS: ARIPiprazole 5 MG TABLET PO SCH (09:20)
[2022-05-18] MEDS: ALLOPURINOL 100 MG TABLET PO SCH (09:20)
[2022-05-18] MEDS: SODIUM BICARBONATE 650 MG TABLET PO SCH (09:21)
[2022-05-18] MEDS: PANTOPRAZOLE SODIUM 40 MG DR TABLET PO SCH (09:21)
[2022-05-18] MEDS: ATORVASTATIN CALCIUM 40 MG TABLET PO SCH (09:21)
[2022-05-18] MEDS: SERTRALINE HCL 100 MG TABLET PO SCH (09:21)
[2022-05-18] MEDS: MULTIVITAMINS WITH MINERALS, THERAPEUTIC TABLET PO SCH (09:21)
[2022-05-18] MEDS: IBUPROFEN 400 MG TABLET PO PRN ×2 (09:27→21:17)
[2022-05-18] MEDS ORDERED: TraMADol HCL 50 MG TABLET PO PRN (10:30)
[2022-05-18 11:56] LABS: GLUCOMETER DEV NAME(LOC) BV2X.2; GLUCOSE,POINT OF CARE 89 MG/DL (70-110)
[2022-05-18] MEDS: INSULIN LISPRO 100 UNITS/ML SQ PRN (17:06)
[2022-05-18] MEDS: DIVALPROEX SODIUM 500 MG ER TABLET PO SCH (20:28)
[2022-05-19 04:36] LABS: GLUCOMETER DEV NAME(LOC) BV2X.2; GLUCOSE,POINT OF CARE 143 MG/DL (70-110)
[2022-05-19] MEDS: ARIPiprazole 5 MG TABLET PO SCH ×2 (08:39→09:00)
[2022-05-19] MEDS: MULTIVITAMINS WITH MINERALS, THERAPEUTIC TABLET PO SCH ×3 (08:40→09:00)
[2022-05-19] MEDS: ALLOPURINOL 100 MG TABLET PO SCH ×3 (08:40→09:00)
[2022-05-19] MEDS: SERTRALINE HCL 100 MG TABLET PO SCH (08:40)
[2022-05-19] MEDS: PANTOPRAZOLE SODIUM 40 MG DR TABLET PO SCH ×3 (08:40→09:00)
[2022-05-19] MEDS: CHOLECALCIFEROL (VIT D3) 5,000 [125 MCG] UNITS CAPSULE PO SCH ×3 (08:40→09:00)
[2022-05-19] MEDS: ATORVASTATIN CALCIUM 40 MG TABLET PO SCH ×3 (08:40→09:00)
[2022-05-19] MEDS: SODIUM BICARBONATE 650 MG TABLET PO SCH ×3 (08:40→09:00)
[2022-05-19 08:42] VITALS: BP 118/65
[2022-05-19 11:22] LABS: GLUCOMETER DEV NAME(LOC) BV2X.2; GLUCOSE,POINT OF CARE 91 MG/DL (70-110)
[2022-05-19] MEDS: DIVALPROEX SODIUM 500 MG ER TABLET PO SCH (20:29)
[2022-05-20] MEDS: SERTRALINE HCL 100 MG TABLET PO SCH (08:38)
[2022-05-20] MEDS: ARIPiprazole 5 MG TABLET PO SCH (08:46)
[2022-05-20] MEDS: SODIUM BICARBONATE 650 MG TABLET PO SCH (08:46)
[2022-05-20] MEDS: CHOLECALCIFEROL (VIT D3) 5,000 [125 MCG] UNITS CAPSULE PO SCH (08:46)
[2022-05-20] MEDS: ATORVASTATIN CALCIUM 40 MG TABLET PO SCH (08:46)
[2022-05-20] MEDS: PANTOPRAZOLE SODIUM 40 MG DR TABLET PO SCH (08:46)
[2022-05-20] MEDS: MULTIVITAMINS WITH MINERALS, THERAPEUTIC TABLET PO SCH (08:46)
[2022-05-20 08:47] VITALS: BP 140/90
[2022-05-20] MEDS: ALLOPURINOL 100 MG TABLET PO SCH (08:47)
[2022-05-20 12:06] LABS: GLUCOMETER DEV NAME(LOC) BV2X.2; GLUCOSE,POINT OF CARE 142 MG/DL (70-110)
[2022-05-20 16:51] LABS: GLUCOMETER DEV NAME(LOC) BV2X.2; GLUCOSE,POINT OF CARE 120 MG/DL (70-110)
[2022-05-20 20:19] VITALS: BP 133/91
[2022-05-20] MEDS: DIVALPROEX SODIUM 500 MG ER TABLET PO SCH (20:26)
[2022-05-21 08:35] VITALS: BP 106/68
[2022-05-21] MEDS: PANTOPRAZOLE SODIUM 40 MG DR TABLET PO SCH (08:37)
[2022-05-21] MEDS: SODIUM BICARBONATE 650 MG TABLET PO SCH (08:37)
[2022-05-21] MEDS: ARIPiprazole 5 MG TABLET PO SCH (08:37)
[2022-05-21] MEDS: MULTIVITAMINS WITH MINERALS, THERAPEUTIC TABLET PO SCH (08:37)
[2022-05-21] MEDS: ATORVASTATIN CALCIUM 40 MG TABLET PO SCH (08:37)
[2022-05-21] MEDS: SERTRALINE HCL 100 MG TABLET PO SCH (08:37)
[2022-05-21] MEDS: ALLOPURINOL 100 MG TABLET PO SCH (08:37)
[2022-05-21] MEDS: CHOLECALCIFEROL (VIT D3) 5,000 [125 MCG] UNITS CAPSULE PO SCH (08:38)
[2022-05-21 11:11] LABS: GLUCOMETER DEV NAME(LOC) BV2X.2; GLUCOSE,POINT OF CARE 131 MG/DL (70-110)
[2022-05-21 16:47] LABS: GLUCOMETER DEV NAME(LOC) BV2X.2; GLUCOSE,POINT OF CARE 128 MG/DL (70-110)
[2022-05-21] MEDS: DIVALPROEX SODIUM 500 MG ER TABLET PO SCH (20:19)
[2022-05-21 20:22] VITALS: BP 137/75
[2022-05-21 20:51] LABS: GLUCOMETER DEV NAME(LOC) BV2X.2; GLUCOSE,POINT OF CARE 165 MG/DL (70-110)
[2022-05-22 06:56] LABS: GLUCOMETER DEV NAME(LOC) BV2X.2; GLUCOSE,POINT OF CARE 135 MG/DL (70-110)
[2022-05-22 07:20] LABS: CALCIUM, TOTAL 8.6 mg/dL (8.8-10.5); CREATININE 2.17 mg/dL (0.60-1.30); POTASSIUM 4.5 mmol/L (3.5-5.1)
[2022-05-22 08:41] VITALS: BP 116/66
[2022-05-22] MEDS: ATORVASTATIN CALCIUM 40 MG TABLET PO SCH (09:56)
[2022-05-22] MEDS: ALLOPURINOL 100 MG TABLET PO SCH (09:56)
[2022-05-22] MEDS: SERTRALINE HCL 100 MG TABLET PO SCH (09:56)
[2022-05-22] MEDS: SODIUM BICARBONATE 650 MG TABLET PO SCH (09:56)
[2022-05-22] MEDS: MULTIVITAMINS WITH MINERALS, THERAPEUTIC TABLET PO SCH (09:56)
[2022-05-22] MEDS: PANTOPRAZOLE SODIUM 40 MG DR TABLET PO SCH (09:56)
[2022-05-22] MEDS: CHOLECALCIFEROL (VIT D3) 5,000 [125 MCG] UNITS CAPSULE PO SCH (09:56)
[2022-05-22] MEDS: ARIPiprazole 5 MG TABLET PO SCH (09:56)
[2022-05-22 11:16] LABS: GLUCOMETER DEV NAME(LOC) BV2X.2; GLUCOSE,POINT OF CARE 121 MG/DL (70-110)
[2022-05-22 17:01] LABS: GLUCOMETER DEV NAME(LOC) BV2X.2; GLUCOSE,POINT OF CARE 118 MG/DL (70-110)
[2022-05-22 20:33] VITALS: BP 133/84
[2022-05-22] MEDS: DIVALPROEX SODIUM 500 MG ER TABLET PO SCH (20:56)
[2022-05-22] MEDS ORDERED: ATOR40TA28 PO (20:58)
[2022-05-22] MEDS ORDERED: CHOL500013 PO (20:58)
[2022-05-22] MEDS ORDERED: SODI650T33 PO (20:58)
[2022-05-22] MEDS ORDERED: ALLO-97 PO (20:58)
[2022-05-22] MEDS ORDERED: DIVA-80 PO (20:58)
[2022-05-22] MEDS ORDERED: SERT-162 PO (20:58)
[2022-05-22] MEDS ORDERED: ARIP5TAB37 PO (20:58)
[2022-05-22] MEDS ORDERED: PANT-31 PO (20:58)
[2022-05-23 08:54] VITALS: BP 137/83
[2022-05-23] MEDS: MULTIVITAMINS WITH MINERALS, THERAPEUTIC TABLET PO SCH ×2 (09:00→09:21)
[2022-05-23] MEDS: SODIUM BICARBONATE 650 MG TABLET PO SCH ×2 (09:00→09:20)
[2022-05-23] MEDS: CHOLECALCIFEROL (VIT D3) 5,000 [125 MCG] UNITS CAPSULE PO SCH ×2 (09:00→09:20)
[2022-05-23] MEDS: ALLOPURINOL 100 MG TABLET PO SCH ×2 (09:00→09:21)
[2022-05-23] MEDS: ARIPiprazole 5 MG TABLET PO SCH (09:20)
[2022-05-23] MEDS: SERTRALINE HCL 100 MG TABLET PO SCH (09:21)
[2022-05-23] MEDS: PANTOPRAZOLE SODIUM 40 MG DR TABLET PO SCH (09:21)
[2022-05-23] MEDS: ATORVASTATIN CALCIUM 40 MG TABLET PO SCH (09:21)
== END 2022-05-23 13:05 | disposition home or self-care (01) | DRG 750 ==
LOC: EMS 15:43 → B2S 05-06 00:17
PROVIDERS: ADMIT Psychiatry & Neurology Psychiatry; ATTEND Psychiatry & Neurology Psychiatry
DX: F25.1 Schizoaffective disorder, depressive type (principal); N17.9 Acute kidney failure, unspecified; F33.2 Major depressive disorder, recurrent severe without psychotic features; E83.51 Hypocalcemia; D63.8 Anemia in other chronic diseases classified elsewhere; F10.229 Alcohol dependence with intoxication, unspecified; T42.6X2A Poisoning by other antiepileptic and sedative-hypnotic drugs, intentional self-harm, initial encounter; E11.22 Type 2 diabetes mellitus with diabetic chronic kidney disease; E78.5 Hyperlipidemia, unspecified; E87.6 Hypokalemia; F41.9 Anxiety disorder, unspecified; G89.29 Other chronic pain; I12.9 Hypertensive chronic kidney disease with stage 1 through stage 4 chronic kidney disease, or unspecified chronic kidney disease; M54.9 Dorsalgia, unspecified; J44.9 Chronic obstructive pulmonary disease, unspecified; M10.9 Gout, unspecified; Z20.822 Contact with and (suspected) exposure to COVID-19; M19.90 Unspecified osteoarthritis, unspecified site; N18.30 Chronic kidney disease, stage 3 unspecified; Z59.00 Homelessness unspecified; Z79.4 Long term (current) use of insulin; Z79.899 Other long term (current) drug therapy; Y92.89 Other specified places as the place of occurrence of the external cause
CPT/HCPCS: 76770; 80048; 80053; 80061; 80164; 81001; 82962; 83036; 85025; 85610; 85730; 90732; 93005; 99285; G0480; G0481; J1815; J3420; J7030